=== PATIENT | female | born 1945 | race Caucasian/White ===

== ENCOUNTER 2017-06-19 07:31 | Outpatient (CLI) | payer MEDICARE, MEDICAID ==
[2017-06-19 08:18] LABS: HCT - HEMATOCRIT 39.7 % (37.0-47.0); HGB - HEMOGLOBIN 13.2 g/dL (12.0-16.0); MEAN CORPUSCULAR HEMOGLOBIN 28.4 pg (27.0-31.0); MEAN CORPUSCULAR HGB CONC 33.2 g/dL (32.0-36.0); MEAN CORPUSCULAR VOLUME 85.6 fL (81.0-99.0); MEAN PLATELET VOLUME 8.8 fL (7.9-10.8); RED BLOOD COUNT 4.64 10^6/uL (4.20-5.40); RED CELL DISTRIBUTION WIDTH 14.1 % (12.0-15.0); WHITE BLOOD COUNT 6.9 x10^3/uL (4.8-10.8)
[2017-06-19 08:39] LABS: ALBUMIN/GLOBULIN RATIO 1.2 (1.0-2.2); BILIRUBIN,TOTAL 0.6 mg/dL (0.2-1.0); BUN - BLOOD UREA NITROGEN 18 mg/dL (6-20); CARBON DIOXIDE - CO2 29 mmol/L (21-32); CHLORIDE 102 mmol/L (101-111); CHOL/HDL RATIO 5.4 (<4.4); CHOLESTEROL 223 mg/dL; CREATININE 0.9 mg/dL (0.4-1.0); GFR - MDRD 62 (>89); GLUCOSE 171 mg/dL (70-100); HDL CHOLESTEROL 41 mg/dL; LDL/HDL RATIO 3.9 (<4.4); SODIUM 141 mmol/L (135-145); TOTAL PROTEIN 6.7 g/dL (6.7-8.2); TRIGLYCERIDES 111 mg/dL; VLDL CHOLESTEROL 22 mg/dL
[2017-06-19 08:41] LABS: HEMOGLOBIN A1C 0.83 g/dL
--- NOTE | 2017-06-19 16:07 | XRAY Report ---
EXAMS: 1. Right Knee Radiography 2. Left Knee Radiography EXAM DATE:06/19/2017 08:51 AM. CLINICAL HISTORY:Bilateral knee pain. COMPARISON: None. TECHNIQUE: 3 views each. FINDINGS: Right Knee: Bones: Normal. No fractures or bone lesions. Joints: Moderate proximal tibiofibular arthropathy with osteophytes. Moderate patellofemoral joint sp ermelinda narrowing laterally with osteophytes. Also, small tibial spine and intercondylar osteophytes. Mil d chondral calcinosis. Soft Tissues: Normal. No soft tissue swelling. Left Knee: Bones: Normal. No fractures or bone lesions. Joints: Mild intercondylar, tibial spine and medial compartment osteophytes. Kvpb-kz-wzfugido patello femoral degenerative joint disease with lateral narrowing and osteophytes. Soft Tissues: Normal. No soft tissue swelling. IMPRESSION: 1. On the right knee, moderate patellofemoral degenerative joint disease and moderate proximal tibiof ibular degenerative changes. Tibiofemoral joint spaces relatively well-preserved. 2. On the left, moderate patellofemoral degenerative joint disease. Tibiofemoral joint space is relat ively well preserved although with small medial compartment osteophytes. [facility] Referring Provider Line: [phone] SITE ID: [id number]
== END 2017-06-19 07:32 | disposition home or self-care (01) ==
LOC: LAB 07:31
PROVIDERS: ATTEND Internal Medicine Nephrology
DX: M17.0 Bilateral primary osteoarthritis of knee (principal); N05.9 Unspecified nephritic syndrome with unspecified morphologic changes; D70.9 Neutropenia, unspecified; R80.9 Proteinuria, unspecified; E11.9 Type 2 diabetes mellitus without complications
CPT/HCPCS: 80053; 80061; 82043; 82570; 83036; 84156

== ENCOUNTER 2017-07-28 15:14 | Outpatient (CLI) | payer MEDICARE, MEDICAID | END 2017-07-28 15:15 | disposition home or self-care (01) | LOC: LAB.N 15:14 | PROVIDERS: ATTEND Internal Medicine Nephrology | DX: I10 Essential (primary) hypertension (principal) | CPT/HCPCS: 36415; 82088; 84244 ==

== ENCOUNTER 2017-09-07 15:18 | Outpatient (CLI) | payer MEDICARE, MEDICAID ==
[2017-09-07 13:17] LABS: CALCIUM 8.7 mg/dL (8.5-10.3); CREATININE 1.1 mg/dL (0.4-1.0)
== END 2017-09-07 15:19 | disposition home or self-care (01) ==
LOC: LAB.N 15:18
PROVIDERS: ATTEND Family Medicine
DX: E87.6 Hypokalemia (principal); I10 Essential (primary) hypertension; E11.9 Type 2 diabetes mellitus without complications
CPT/HCPCS: 36415; 80048

== ENCOUNTER 2017-09-10 08:40 | Outpatient (CLI) | payer MEDICARE, MEDICAID ==
[2017-09-10 13:22] LABS: CALCIUM 8.6 mg/dL (8.5-10.3); CREATININE 0.8 mg/dL (0.4-1.0); MAGNESIUM 1.5 mg/dL (1.7-2.8); PHOSPHORUS 3.4 mg/dL (2.5-4.6); POTASSIUM 3.1 mmol/L (3.5-5.0)
== END 2017-09-10 08:41 | disposition home or self-care (01) ==
LOC: LAB.N 08:40
PROVIDERS: ATTEND Physician Assistant Medical
DX: I10 Essential (primary) hypertension (principal)
CPT/HCPCS: 36415; 80069; 82088; 83735; 84244

== ENCOUNTER 2017-12-02 09:14 | Outpatient (CLI) | payer MEDICARE, MEDICAID ==
[2017-12-02 13:44] LABS: ALBUMIN 3.8 g/dL (3.2-5.5); ALBUMIN/GLOBULIN RATIO 1.3 (1.0-2.2); ALKALINE PHOSPHATASE 59 IU/L (42-121); ALT ALANINE AMINOTRANSFERASE 23 IU/L (10-60); AST ASPARTATE AMINOTRANSFERASE 21 IU/L (10-42); BILIRUBIN,TOTAL 0.4 mg/dL (0.2-1.0); BUN - BLOOD UREA NITROGEN 13 mg/dL (6-20); CALCIUM 8.7 mg/dL (8.5-10.3); CARBON DIOXIDE - CO2 28 mmol/L (21-32); CHLORIDE 103 mmol/L (101-111); CHOL/HDL RATIO 4.8 (<4.4); CHOLESTEROL 235 mg/dL; CREATININE 0.8 mg/dL (0.4-1.0); GFR - MDRD 71 (>89); GLUCOSE 145 mg/dL (70-100); HDL CHOLESTEROL 49 mg/dL; LDL CHOLESTEROL,CALCULATED 167 mg/dL; LDL/HDL RATIO 3.4 (<4.4); SODIUM 139 mmol/L (135-145); TOTAL PROTEIN 6.8 g/dL (6.7-8.2); VLDL CHOLESTEROL 19 mg/dL
[2017-12-02 14:21] LABS: HB2 TOTAL 13.5 g/dL; HEMOGLOBIN A1C 0.69 g/dL; HEMOGLOBIN A1C % 6.8 % (4.6-6.2)
== END 2017-12-02 09:15 | disposition home or self-care (01) ==
LOC: LAB.WCP 09:14
PROVIDERS: ATTEND Physician Assistant Medical
DX: E11.9 Type 2 diabetes mellitus without complications (principal); C73 Malignant neoplasm of thyroid gland
CPT/HCPCS: 36415; 80053; 80061; 83036; 83721; 84443

== ENCOUNTER 2017-12-15 09:17 | Outpatient (CLI) | payer MEDICARE, MEDICAID ==
[2017-12-15 12:38] LABS: RHEUMATOID FACTOR NEGATIVE (Negative)
[2017-12-15 13:10] LABS: BUN - BLOOD UREA NITROGEN 19 mg/dL (6-20); CALCIUM 9.2 mg/dL (8.5-10.3); CARBON DIOXIDE - CO2 28 mmol/L (21-32); CHLORIDE 101 mmol/L (101-111); CREATININE 0.8 mg/dL (0.4-1.0); GFR - MDRD 71 (>89); GLUCOSE 166 mg/dL (70-100); SODIUM 140 mmol/L (135-145)
[2017-12-15 13:14] LABS: CRP - C-REACTIVE PROTEIN < 1.0 mg/dL (0-1.0)
[2017-12-17 14:10] LABS: ANA SCREEN NEGATIVE (NEGATIVE)
== END 2017-12-15 09:18 | disposition home or self-care (01) ==
LOC: LAB.WCP 09:17
PROVIDERS: ATTEND Physician Assistant Medical
DX: E87.6 Hypokalemia (principal); M25.532 Pain in left wrist
CPT/HCPCS: 36415; 80048; 85651; 86038; 86140; 86430

== ENCOUNTER 2018-02-04 08:00 | Outpatient (CLI) | payer MEDICARE, MEDICAID ==
[2018-02-04 13:10] LABS: ALBUMIN 3.8 g/dL (3.2-5.5); ALBUMIN/GLOBULIN RATIO 1.3 (1.0-2.2); ALKALINE PHOSPHATASE 63 IU/L (42-121); ALT ALANINE AMINOTRANSFERASE 20 IU/L (10-60); AST ASPARTATE AMINOTRANSFERASE 18 IU/L (10-42); BILIRUBIN,TOTAL 0.2 mg/dL (0.2-1.0); BUN - BLOOD UREA NITROGEN 17 mg/dL (6-20); CALCIUM 8.6 mg/dL (8.5-10.3); CARBON DIOXIDE - CO2 30 mmol/L (21-32); CHLORIDE 101 mmol/L (101-111); CHOLESTEROL 187 mg/dL; CREATININE 0.9 mg/dL (0.4-1.0); GFR - MDRD 62 (>89); GLUCOSE 134 mg/dL (70-100); HDL CHOLESTEROL 47 mg/dL; LDL CHOLESTEROL,CALCULATED 117 mg/dL; LDL/HDL RATIO 2.5 (<4.4); SODIUM 138 mmol/L (135-145); TOTAL PROTEIN 6.8 g/dL (6.7-8.2); VLDL CHOLESTEROL 23 mg/dL
[2018-02-04 13:25] LABS: HB2 TOTAL 13.7 g/dL; HEMOGLOBIN A1C 0.68 g/dL; HEMOGLOBIN A1C % 6.7 % (4.6-6.2)
== END 2018-02-04 08:01 | disposition home or self-care (01) ==
LOC: LAB.WCP 08:00
PROVIDERS: ATTEND Physician Assistant Medical
DX: E11.9 Type 2 diabetes mellitus without complications (principal)
CPT/HCPCS: 36415; 80053; 80061; 83036; 83721

== ENCOUNTER 2018-03-09 09:30 | Outpatient (CLI) | payer MEDICARE, MEDICAID ==
[2018-03-09 13:09] LABS: HB2 TOTAL 14.1 g/dL; HEMOGLOBIN A1C 0.72 g/dL; HEMOGLOBIN A1C % 6.8 % (4.6-6.2)
[2018-03-09 13:21] LABS: ALBUMIN 3.9 g/dL (3.2-5.5); ALBUMIN/GLOBULIN RATIO 1.2 (1.0-2.2); ALKALINE PHOSPHATASE 64 IU/L (42-121); ALT ALANINE AMINOTRANSFERASE 20 IU/L (10-60); AST ASPARTATE AMINOTRANSFERASE 22 IU/L (10-42); BILIRUBIN,TOTAL 0.5 mg/dL (0.2-1.0); BUN - BLOOD UREA NITROGEN 15 mg/dL (6-20); CALCIUM 8.9 mg/dL (8.5-10.3); CARBON DIOXIDE - CO2 28 mmol/L (21-32); CHLORIDE 103 mmol/L (101-111); CHOLESTEROL 241 mg/dL; CREATININE 0.7 mg/dL (0.4-1.0); GFR - MDRD 83 (>89); GLUCOSE 131 mg/dL (70-100); HDL CHOLESTEROL 48 mg/dL; LDL CHOLESTEROL,CALCULATED 169 mg/dL; LDL/HDL RATIO 3.5 (<4.4); SODIUM 138 mmol/L (135-145); TOTAL PROTEIN 7.1 g/dL (6.7-8.2); VLDL CHOLESTEROL 24 mg/dL
== END 2018-03-09 09:31 | disposition home or self-care (01) ==
LOC: LAB.WCP 09:30
PROVIDERS: ATTEND Physician Assistant Medical
DX: E11.9 Type 2 diabetes mellitus without complications (principal)
CPT/HCPCS: 36415; 80053; 80061; 83036; 83721; 83735

== ENCOUNTER 2018-04-12 09:26 | Outpatient (CLI) | payer MEDICARE, MEDICAID ==
[2018-04-12 12:32] LABS: CALCIUM 8.6 mg/dL (8.5-10.3); CREATININE 0.9 mg/dL (0.4-1.0); MAGNESIUM 1.8 mg/dL (1.7-2.8)
== END 2018-04-12 09:27 | disposition home or self-care (01) ==
LOC: LAB.WCP 09:26
PROVIDERS: ATTEND Physician Assistant Medical
DX: E87.6 Hypokalemia (principal); E83.42 Hypomagnesemia
CPT/HCPCS: 36415; 80048; 83735

== ENCOUNTER 2018-06-06 08:00 | Outpatient (CLI) | payer MEDICARE, MEDICAID ==
[2018-06-06 19:57] LABS: ALBUMIN 3.5 g/dL (3.2-5.5); ALKALINE PHOSPHATASE 90 IU/L (42-121); ALT ALANINE AMINOTRANSFERASE 34 IU/L (10-60); AST ASPARTATE AMINOTRANSFERASE 19 IU/L (10-42); BILIRUBIN,TOTAL 0.6 mg/dL (0.2-1.0); BUN - BLOOD UREA NITROGEN 15 mg/dL (6-20); CALCIUM 9.7 mg/dL (8.5-10.3); CARBON DIOXIDE - CO2 24 mmol/L (21-32); CHLORIDE 103 mmol/L (101-111); CHOL/HDL RATIO 5.2 (<4.4); CHOLESTEROL 230 mg/dL; GFR - MDRD 55 (>89); GLUCOSE 153 mg/dL (70-100); HDL CHOLESTEROL 44 mg/dL; LDL CHOLESTEROL,CALCULATED 152 mg/dL; LDL/HDL RATIO 3.5 (<4.4); SODIUM 136 mmol/L (135-145); TOTAL PROTEIN 7.1 g/dL (6.7-8.2); VLDL CHOLESTEROL 34 mg/dL
[2018-06-06 20:38] LABS: HB2 TOTAL 14.3 g/dL; HEMOGLOBIN A1C 0.75 g/dL
== END 2018-06-06 08:01 | disposition home or self-care (01) ==
LOC: LAB.WCP 08:00
PROVIDERS: ATTEND Physician Assistant Medical
DX: E11.9 Type 2 diabetes mellitus without complications (principal)
CPT/HCPCS: 36415; 80053; 80061; 83036; 83721

== ENCOUNTER 2018-06-16 10:01 | Outpatient (CLI) | payer MEDICARE, MEDICAID ==
[2018-06-16 12:23] LABS: BASOPHILS # (AUTO) 0.1 10^3/uL (0.0-0.1); BASOPHILS % (AUTO) 0.9 %; EOSINOPHILS # (AUTO) 0.2 10^3/uL (0.0-0.7); EOSINOPHILS % (AUTO) 3.1 %; HGB - HEMOGLOBIN 12.8 g/dL (12.0-16.0); LYMPHOCYTES # (AUTO) 2.4 10^3/uL (1.5-3.5); LYMPHOCYTES % (AUTO) 37.2 %; MEAN CORPUSCULAR HEMOGLOBIN 27.5 pg (27.0-31.0); MEAN CORPUSCULAR HGB CONC 33.1 g/dL (32.0-36.0); MEAN PLATELET VOLUME 8.5 fL (7.9-10.8); MONOCYTES # (AUTO) 0.5 10^3/uL (0.0-1.0); MONOCYTES % (AUTO) 7.6 %; NEUTROPHILS # (AUTO) 3.3 10^3/uL (1.5-6.6); NEUTROPHILS % (AUTO) 51.2 %; PLT - PLATELET COUNT 417 10^3/uL (130-450); RED BLOOD COUNT 4.63 10^6/uL (4.20-5.40); RED CELL DISTRIBUTION WIDTH 15.5 % (12.0-15.0); WHITE BLOOD COUNT 6.4 x10^3/uL (4.8-10.8)
[2018-06-16 15:09] LABS: ALBUMIN 3.7 g/dL (3.2-5.5); ALBUMIN/GLOBULIN RATIO 1.1 (1.0-2.2); BILIRUBIN,TOTAL 0.6 mg/dL (0.2-1.0); CALCIUM 9.6 mg/dL (8.5-10.3); CREATININE 1.1 mg/dL (0.4-1.0); TOTAL PROTEIN 7.2 g/dL (6.7-8.2)
== END 2018-06-16 10:02 | disposition home or self-care (01) ==
LOC: LAB.WCP 10:01
PROVIDERS: ATTEND Physician Assistant Medical
DX: E27.9 Disorder of adrenal gland, unspecified (principal)
CPT/HCPCS: 36415; 80053; 85025

== ENCOUNTER 2018-07-05 09:05 | Outpatient (CLI) | payer MEDICARE, MEDICAID ==
--- NOTE | 2018-07-05 09:55 | CT Report ---
Reason: ABDOMINAL PAIN Procedure Date: 07/05/2018 Accession Number: [id number] / [id number] Procedure: CT - Abdomen/Pelvis W/O CPT Code: FULL RESULT: EXAM: CT ABDOMEN AND PELVIS EXAM DATE: 07/05/2018 09:27 AM. CLINICAL HISTORY: Generalized abdominal pain. COMPARISONS: None. TECHNIQUE: Routine helical CT imaging was performed through the abdomen and pelvis. IV contrast: No. Enteric contrast: No. Reconstructions: Coronal and sagittal. In accordance with CT protocol optimization, one or more of the following dose reduction techniques were utilized for this exam: automated exposure control, adjustment of mA and/or KV based on patient size, or use of iterative reconstructive technique. FINDINGS: Lung Bases: Unremarkable. Solid organs: Noncontrast imaging of the solid organs demonstrates a small 2 mm nonobstructing stone in the lower pole right kidney. A small 9 mm fat density nodule is also seen in the lower pole suggesting small angiomyolipoma (image 33, series 3). Some minor stranding is seen in the left upper quadrant surrounding the spleen, adrenal gland, distal pancreatic tail and upper pole left kidney which may be related to old inflammatory process. Tiny calcified granuloma is seen in the left hepatic lobe. Gallbladder/Bile Ducts: Unremarkable. Peritoneal Cavity/Bowel: Normal. No free fluid, free air or adenopathy. No masses or acute inflammatory process. The appendix is not visualized, however, no inflammatory changes are seen in the right lower quadrant region. Pelvic Organs: Normal. The bladder and visualized pelvic organs are within normal limits. Vasculature: No aneurysms or other significant abnormality. Bones: No significant abnormality. Other: None. IMPRESSION: 1. Right-sided nephrolithiasis without hydronephrosis. No bladder stones or wall thickening is identified. 2. 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 3. Minor stranding in the left upper quadrant and retroperitoneal region, nonspecific. Findings likely represent old inflammatory scarring. Correlate clinically. [facility]
== END 2018-07-05 09:06 | disposition home or self-care (01) ==
LOC: DI 09:05
PROVIDERS: ATTEND Family Medicine
DX: N20.0 Calculus of kidney (principal); D17.71 Benign lipomatous neoplasm of kidney; R10.9 Unspecified abdominal pain
CPT/HCPCS: 74176

== ENCOUNTER 2018-07-20 08:40 | Outpatient (CLI) | payer MEDICARE, MEDICAID ==
[2018-07-20 13:23] LABS: CALCIUM 9.5 mg/dL (8.5-10.3); CREATININE 1.5 mg/dL (0.4-1.0); MAGNESIUM 1.9 mg/dL (1.7-2.8)
[2018-07-22 17:51] LABS: CREATININE, URINE 0.78 g/24 h (0.50-2.15)
== END 2018-07-20 08:41 | disposition home or self-care (01) ==
LOC: LAB.WCP 08:40
PROVIDERS: ATTEND Physician Assistant Medical
DX: E87.6 Hypokalemia (principal); E83.42 Hypomagnesemia; E27.9 Disorder of adrenal gland, unspecified; C73 Malignant neoplasm of thyroid gland; E11.9 Type 2 diabetes mellitus without complications; R19.7 Diarrhea, unspecified
CPT/HCPCS: 36415; 80048; 82530; 82533; 82570; 83735; 84443

== ENCOUNTER 2018-07-21 07:58 | Outpatient (CLI) | payer MEDICARE, MEDICAID ==
--- NOTE | 2018-07-21 16:43 | Ultrasound Report ---
Reason: RENAL ANGIOMYOLIPOMA Procedure Date: 07/21/2018 Accession Number: [id number] / [id number] Procedure: US - Retroperitoneal CPT Code: FULL RESULT: EXAM: RENAL ULTRASOUND EXAM DATE: 07/21/2018 08:35 AM. CLINICAL HISTORY: RENAL ANGIOMYOLIPOMA. COMPARISON: ABDOMEN/PELVIS W/O 07/05/2018 9:27 AM. TECHNIQUE: Real-time scanning was performed with static images obtained. FINDINGS: Right Kidney: 9.5 cm. No hydronephrosis. Inferior pole nonobstructing 8 mm calculus. Left Kidney: 9.2 cm. Normal echotexture with no stones, contour-deforming masses, or hydronephrosis. Bladder: Bilateral jets seen. The prevoid bladder volume was 22 cc. The postvoid bladder volume was 8 cc. Other: None. IMPRESSION: The known right inferior pole angiomyolipoma is sonographically visible and measures up to 1.1 cm. Nonobstructing 8 mm inferior right renal calculus. Recommendation: While these lesions do grow, this is typically a slow process on the order of years. Given current size, follow-up by non-ionizing modality such as ultrasound with initial intervals spaced as far apart as 24 months is reasonable. The generic recommendation calls for imaging every 6-12 months, would suggest this interval once the lesion reaches 2 cm. Treatment in the form of IR embolization of angiomyolipoma is indicated in the following three scenarios: Size greater than 4 cm, clinically painful, bleeding into the mass. [facility]
== END 2018-07-21 07:59 | disposition home or self-care (01) ==
LOC: DI 07:58
PROVIDERS: ATTEND Family Medicine
DX: D17.71 Benign lipomatous neoplasm of kidney (principal); N20.2 Calculus of kidney with calculus of ureter
CPT/HCPCS: 76770

== ENCOUNTER 2018-09-12 08:00 | Outpatient (CLI) | payer MEDICARE, MEDICAID ==
[2018-09-12 17:10] LABS: ALBUMIN 3.7 g/dL (3.2-5.5); ALBUMIN/GLOBULIN RATIO 1.2 (1.0-2.2); ALKALINE PHOSPHATASE 62 IU/L (42-121); ALT ALANINE AMINOTRANSFERASE 13 IU/L (10-60); AST ASPARTATE AMINOTRANSFERASE 12 IU/L (10-42); BILIRUBIN,TOTAL 0.6 mg/dL (0.2-1.0); BUN - BLOOD UREA NITROGEN 13 mg/dL (6-20); CALCIUM 9.1 mg/dL (8.5-10.3); CARBON DIOXIDE - CO2 23 mmol/L (21-32); CHLORIDE 101 mmol/L (101-111); CHOL/HDL RATIO 5.5 (<4.4); CHOLESTEROL 238 mg/dL; CREATININE 1.4 mg/dL (0.4-1.0); GFR - MDRD 37 (>89); GLUCOSE 98 mg/dL (70-100); HDL CHOLESTEROL 43 mg/dL; LDL CHOLESTEROL,CALCULATED 170 mg/dL; SODIUM 131 mmol/L (135-145); TOTAL PROTEIN 6.9 g/dL (6.7-8.2); VLDL CHOLESTEROL 25 mg/dL
[2018-09-12 17:32] LABS: HB2 TOTAL 12.5 g/dL; HEMOGLOBIN A1C 0.55 g/dL; HEMOGLOBIN A1C % 6.2 % (4.6-6.2)
== END 2018-09-12 23:59 | disposition home or self-care (01) ==
LOC: LAB.WCP 08:00
PROVIDERS: ATTEND Physician Assistant Medical
DX: E11.9 Type 2 diabetes mellitus without complications (principal); E78.5 Hyperlipidemia, unspecified; C73 Malignant neoplasm of thyroid gland
CPT/HCPCS: 36415; 80053; 80061; 83036; 83721; 84443

== ENCOUNTER 2018-10-27 12:28 | Outpatient (CLI) | payer MEDICARE, MEDICAID | END 2018-10-27 12:29 | disposition EMS.NT | LOC: EMS 12:28 | PROVIDERS: ATTEND Surgery | DX: Z03.89 Encounter for observation for other suspected diseases and conditions ruled out (principal) ==

== ENCOUNTER 2018-10-29 08:59 | Emergency (ER) | payer MEDICARE, MEDICAID ==
[2018-10-29 09:14] VITALS: BP 132/85
[2018-10-29] MEDS ORDERED: HYDROcod/ACETAM 5/325 MG TABLET PO STA (09:18)
--- NOTE | 2018-10-29 09:21 | ED Physician Documentation ---
History of Present Illness - Stated complaint Stated Complaint: GLF/RIB PAIN - Chief complaint Chief Complaint: Back Pain - History obtained from History obtained from: Patient, Family - History of Present Illness Timing: How many days ago (2) Pain level max: 8 Pain level now: 8 - Additonal information Additional information: 73-year-old female presents to the emergency department with left rib pain for the past 2 days status post a ground-level fall in her kitchen. She did not strike her head. No neck or back pain. This morning she was carrying a large book and felt an increase in pain on the left ribs. Has been taking Tylenol and Motrin without relief. No difficulty breathing. Better with rest and worse with movement Review of Systems Constitutional: denies: Fever, Chills Nose: denies: Rhinorrhea / runny nose, Congestion GI: denies: Vomiting, Diarrhea Skin: denies: Rash Musculoskeletal: denies: Neck pain, Back pain Neurologic: denies: Headache PD PAST MEDICAL HISTORY - Past Medical History Past Medical History: Yes Cardiovascular: Hypertension - Present Medications Home Medications: Ambulatory Orders Medication Instructions Recorded Confirmed Aspirin Chewable [St Ted 81 mg PO ONCE 10/29/18 10/29/18 Aspirin] Hydrocodone/Acetaminophen 1 - 2 each PO Q6H PRN #20 tablet 10/29/18 [Hydrocodon-Acetaminophen 5-325] Levothyroxine [Synthroid] 10/29/18 10/29/18 Metoprolol Succinate [Toprol Xl] 50 mg PO BID 10/29/18 10/29/18 metFORMIN [Glucophage] 500 mg PO BIDWM 10/29/18 10/29/18 - Allergies Allergies/Adverse Reactions: Allergies Allergy/AdvReac Type Severity Reaction Status Date / Time eplerenone Allergy Respiratory Verified 10/29/18 09:17 spironolactone Allergy Respiratory Verified 10/29/18 09:18 amoxicillin [From Augmentin] AdvReac Nausea Verified 10/29/18 09:18 clavulanic acid AdvReac Nausea Verified 10/29/18 09:18 [From Augmentin] Sulfa (Sulfonamide AdvReac Nausea Verified 10/29/18 09:18 Antibiotics) - Social History Does the pt smoke?: No Does the pt have substance abuse?: No - Family History Family history: reports: Non contributory PD ED PE NORMAL - Vitals Vital signs reviewed: Yes - General General: Alert and oriented X 3, No acute distress, Well developed/nourished - HEENT HEENT: Atraumatic, PERRL, Moist mucous membranes - Neck Neck: Supple, no meningeal sign, No bony TTP - Cardiac Cardiac: RRR, Strong equal pulses - Respiratory Respiratory: No respiratory distress, Clear bilaterally, Other (TTP L lower ribs approx 8-10) - Abdomen Abdomen: Soft, Non tender, Non distended - Back Back: No spinal TTP - Derm Derm: Warm and dry - Neuro Neuro: Alert and oriented X 3 - Psych Psych: Normal mood, Normal affect Results - Vitals Vitals: Vital Signs - 24 hr 10/29/18 09:09 Temperature 35.8 C L Heart Rate 80 Respiratory 16 Rate Blood Pressure 132/85 H O2 Saturation 97 Oxygen O2 Source Room air - Rads (name of study) L rib xray Radiology: Prelim report reviewed, EMP read contemporaneously, See rad report (Acute minimally displaced left posterior lateral eighth rib fracture. No pleural effusion, pneumothorax, or other acute cardiopulmonary abnormality.) PD MEDICAL DECISION MAKING - ED course Complexity details: reviewed results, re-evaluated patient, considered differential, d/w patient, d/w family ED course: 73-year-old female with an acute minimally displaced left posterior lateral eighth rib fracture. Pain well controlled. Will prescribe pain medication for home. No pneumothorax or hemothorax. No effusion. Patient and family counseled regarding signs and symptoms for which I believe and urgent re- evaluation would be necessary. Patient with good understanding of and agreement to plan and is comfortable going home at this time This document was made in part using voice recognition software. While efforts are made to proofread this document, sound alike and grammatical errors may occur. Departure - Departure Disposition: 01 Home, Self Care Clinical Impression: Rib fracture Qualifiers: Encounter type: initial encounter Rib fracture type: single rib Fracture type: closed Laterality: left Qualified Code(s): S22.32XA - Fracture of one rib, left side, initial encounter for closed fracture Condition: Good Instructions: ED Fx Rib Follow-Up: Kailey Ennis PA-C [Primary Care Provider] - Within 1 week Prescriptions: Hydrocodone/Acetaminophen [Hydrocodon-Acetaminophen 5-325] 1 - 2 each PO Q6H PRN #20 tablet PRN Reason: pain Comments: You do have a fractured rib today. This will take several weeks to months to heal. Follow-up with your doctor for further care and medication refills. Do not drink alcohol or drive while on narcotic pain medicine. Note that many narcotic pain relievers also contain tylenol/acetaminophen. Please ensure that your total dose of acetaminophen from all sources does not exceed 3 grams (3000mg) per day. You may constipated on this medication, take a stool softener such as "Colace" twice a day while you are on it. Also recommend a [id number]-ylh-obfnizw laxative such as senna or MiraLAX any day that you do not have a bowel movement. If you received narcotic pain medication in the emergency department, do not drive or operate machinery for the next 24 hours. Discharge Date/Time: 10/29/18 10:15
--- NOTE | 2018-10-29 09:55 | XRAY Report ---
Reason: fall L rib pain x 2 days Procedure Date: 10/29/2018 Accession Number: [id number] / [id number] Procedure: XR - Ribs w/PA Chest LT CPT Code: FULL RESULT: EXAM: LEFT RIB RADIOGRAPHY EXAM DATE: 10/29/2018 09:41 AM. CLINICAL HISTORY: Fall L rib pain x 2 days. COMPARISON: None. TECHNIQUE: 1 view of the chest and 2 views of the left ribs. FINDINGS: Bones: There is an acute minimally displaced fracture of the left posterior lateral eighth rib. The remainder of visualized bones appear intact. Lungs: No focal opacities. No pneumothorax. No pleural effusions. Mediastinum: Heart and mediastinal contours are unremarkable. Other: None. IMPRESSION: 1. Acute minimally displaced left posterior lateral eighth rib fracture. 2. No pleural effusion, pneumothorax, or other acute cardiopulmonary abnormality. [facility]
== END 2018-10-29 10:15 | disposition home or self-care (01) ==
LOC: ED 08:59
DX: S22.32XA Fracture of one rib, left side, initial encounter for closed fracture (principal); W18.30XA Fall on same level, unspecified, initial encounter; I10 Essential (primary) hypertension
CPT/HCPCS: 71101; 99283; A9270

== ENCOUNTER 2018-12-13 09:57 | Outpatient (CLI) | payer MEDICARE, MEDICAID ==
[2018-12-13 13:12] LABS: HB2 TOTAL 12.3 g/dL; HEMOGLOBIN A1C 0.46 g/dL; HEMOGLOBIN A1C % 5.6 % (4.6-6.2)
[2018-12-13 13:19] LABS: ALBUMIN 3.6 g/dL (3.2-5.5); ALBUMIN/GLOBULIN RATIO 1.1 (1.0-2.2); ALKALINE PHOSPHATASE 67 IU/L (42-121); ALT ALANINE AMINOTRANSFERASE 16 IU/L (10-60); AST ASPARTATE AMINOTRANSFERASE 17 IU/L (10-42); BILIRUBIN,TOTAL 0.4 mg/dL (0.2-1.0); BUN - BLOOD UREA NITROGEN 26 mg/dL (6-20); CALCIUM 9.3 mg/dL (8.5-10.3); CARBON DIOXIDE - CO2 21 mmol/L (21-32); CHLORIDE 101 mmol/L (101-111); CHOL/HDL RATIO 4.6 (<4.4); CHOLESTEROL 220 mg/dL; CREATININE 1.2 mg/dL (0.4-1.0); GFR - MDRD 44 (>89); GLUCOSE 97 mg/dL (70-100); HDL CHOLESTEROL 48 mg/dL; LDL CHOLESTEROL,CALCULATED 147 mg/dL; LDL/HDL RATIO 3.1 (<4.4); SODIUM 129 mmol/L (135-145); TOTAL PROTEIN 6.8 g/dL (6.7-8.2); VLDL CHOLESTEROL 25 mg/dL
== END 2018-12-13 23:59 | disposition home or self-care (01) ==
LOC: LAB.WCP 09:57
PROVIDERS: ATTEND Physician Assistant Medical
DX: E11.9 Type 2 diabetes mellitus without complications (principal)
CPT/HCPCS: 36415; 80053; 80061; 83036; 83721

== ENCOUNTER 2018-12-15 10:25 | Outpatient (CLI) | payer MEDICARE, MEDICAID ==
--- NOTE | 2018-12-15 16:04 | XRAY Report ---
Reason: COUGH, CHRONIC Procedure Date: 12/15/2018 Accession Number: [id number] / [id number] Procedure: WCP - Chest 2 View X-Ray CPT Code: 86484 FULL RESULT: EXAM: CHEST RADIOGRAPHY EXAM DATE: 12/15/2018 10:51 AM. CLINICAL HISTORY: Cough, chronic. COMPARISON: RIBS W/PA CHEST LT 10/29/2018 9:22 AM. TECHNIQUE: 2 views. FINDINGS: Lungs/Pleura: No focal opacities evident. No pleural effusion. No pneumothorax. Normal volumes. Mediastinum: Heart and mediastinal contours are unremarkable. Other: Healing rib fractures are again seen. IMPRESSION: No evidence of pneumonia or airspace disease. [facility]
== END 2018-12-15 10:26 | disposition home or self-care (01) ==
LOC: DI.WCP 10:25
PROVIDERS: ATTEND Physician Assistant Medical
DX: R05 Cough (principal)
CPT/HCPCS: 71046

== ENCOUNTER 2019-02-15 11:13 | Outpatient (CLI) | payer MEDICARE, MEDICAID ==
[2019-02-15 19:44] LABS: BASOPHILS # (AUTO) 0.1 10^3/uL (0.0-0.1); BASOPHILS % (AUTO) 0.7 %; EOSINOPHILS # (AUTO) 0.3 10^3/uL (0.0-0.7); EOSINOPHILS % (AUTO) 3.4 %; HGB - HEMOGLOBIN 12.2 g/dL (12.0-16.0); LYMPHOCYTES # (AUTO) 2.3 10^3/uL (1.5-3.5); LYMPHOCYTES % (AUTO) 28.5 %; MEAN CORPUSCULAR HEMOGLOBIN 28.9 pg (27.0-31.0); MEAN CORPUSCULAR HGB CONC 32.6 g/dL (32.0-36.0); MEAN CORPUSCULAR VOLUME 88.7 fL (81.0-99.0); MEAN PLATELET VOLUME 8.5 fL (7.9-10.8); MONOCYTES # (AUTO) 0.6 10^3/uL (0.0-1.0); MONOCYTES % (AUTO) 7.4 %; NEUTROPHILS # (AUTO) 4.9 10^3/uL (1.5-6.6); PLT - PLATELET COUNT 319 10^3/uL (130-450); RED BLOOD COUNT 4.23 10^6/uL (4.20-5.40); RED CELL DISTRIBUTION WIDTH 14.2 % (12.0-15.0); WHITE BLOOD COUNT 8.2 x10^3/uL (4.8-10.8)
[2019-02-15 20:45] LABS: ALBUMIN/GLOBULIN RATIO 1.2 (1.0-2.2); BILIRUBIN,TOTAL 0.2 mg/dL (0.2-1.0); CALCIUM 9.2 mg/dL (8.5-10.3); CREATININE 1.8 mg/dL (0.4-1.0); TOTAL PROTEIN 7.3 g/dL (6.7-8.2)
== END 2019-02-15 11:14 | disposition home or self-care (01) ==
LOC: LAB.WCP 11:13
PROVIDERS: ATTEND Physician Assistant
DX: E27.9 Disorder of adrenal gland, unspecified (principal); E87.6 Hypokalemia
CPT/HCPCS: 36415; 80053; 83735; 85025

== ENCOUNTER 2019-02-15 21:34 | Emergency (ER) | payer MEDICARE, MEDICAID ==
--- NOTE | 2019-02-15 22:09 | ED Physician Documentation ---
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 For the last few days she is been feeling some odd symptoms, some numbness in the left hand and right leg and because of that started taking potassium supplementation. Saw her doctor today and labs were ordered showing a potassium 6.1 in the setting of a creatinine of 1.8. 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 : None HEENT: None Psych: None Musculoskeletal: None Derm: None - Past Surgical History Past Surgical History: No - Present Medications Home Medications: Ambulatory Orders Medication Instructions Recorded Confirmed Aspirin Chewable [St Ted 81 mg PO ONCE 10/29/18 10/29/18 Aspirin] Hydrocodone/Acetaminophen 1 - 2 each PO Q6H PRN #20 tablet 10/29/18 [Hydrocodon-Acetaminophen 5-325] Levothyroxine [Synthroid] 10/29/18 10/29/18 Metoprolol Succinate [Toprol Xl] 50 mg PO BID 10/29/18 10/29/18 metFORMIN [Glucophage] 500 mg PO BIDWM 10/29/18 10/29/18 - Allergies Allergies/Adverse Reactions: Allergies Allergy/AdvReac Type Severity Reaction Status Date / Time eplerenone Allergy Respiratory Verified 02/15/19 21:53 spironolactone Allergy Respiratory Verified 02/15/19 21:53 amoxicillin [From Augmentin] AdvReac Nausea Verified 02/15/19 21:53 clavulanic acid AdvReac Nausea Verified 02/15/19 21:53 [From Augmentin] Sulfa (Sulfonamide AdvReac Nausea Verified 02/15/19 21:53 Antibiotics) - Social History Does the pt smoke?: No Smoking Status: Never smoker Does the pt drink ETOH?: No Does the pt have substance abuse?: No - Immunizations Immunizations are current?: Yes - POLST Patient has POLST: No PD ED PE NORMAL - Vitals Vital signs reviewed: Yes - General General: Alert and oriented X 3, No acute distress - HEENT HEENT: PERRL, EOMI - Neck Neck: Supple, no meningeal sign, No bony TTP - Cardiac Cardiac: RRR, No murmur - Respiratory Respiratory: No respiratory distress, Clear bilaterally - Abdomen Abdomen: Normal bowel sounds, Non tender - Back Back: No CVA TTP, No spinal TTP - Derm Derm: No rash - Extremities Extremities: No edema, No calf tenderness / cord - Neuro Neuro: Alert and oriented X 3, Normal speech Results - Vitals Vitals: Vital Signs - 24 hr 02/15/19 21:45 Temperature 36.6 C Heart Rate 72 Respiratory 17 Rate Blood Pressure 133/71 H O2 Saturation 98 Oxygen O2 Source Room air - EKG (time done) 2151 Rate: Rate (enter#) (70) Rhythm: NSR, Other (No wide QRS or significantly peaked T waves to suggest severe hyperkalemia.) [place]: Normal Intervals: Normal ND QRS: Normal Ischemia: Normal ST segments Computer interpretation: Agree with computer - Labs Labs: Laboratory Tests 02/15/19 22:05 Sodium 129 L Potassium 5.3 H Chloride 96 L Carbon Dioxide 22 Anion Gap 11.0 BUN 32 H Creatinine 1.7 H Estimated GFR (MDRD) 30 L Glucose 113 H Calcium 9.2 PD MEDICAL DECISION MAKING - ED course ED course: 73-year-old woman with history of hypokalemia status post adrenalectomy presents now with hyperkalemia on outpatient labs to 6.1 earlier in the day of setting of taking a potassium supplement. Now is back down to 5.3. She is modestly prerenal and is administered IV fluids and advised to stop taking her potassium supplement. Departure - Departure Disposition: 01 Home, Self Care Clinical Impression: Hyperkalemia, Dehydration Condition: Good Record reviewed to determine appropriate education?: Yes Instructions: Hyperkalemia Dc, ED Dehydration, Diet Low Potassium Dc Comments: Stop taking a potassium supplement. Drink plenty of water. Eat a low potassium diet. Return if worse. Follow-up with your doctor for repeat labs after the weekend.
[2019-02-15 22:27] LABS: CALCIUM 9.2 mg/dL (8.5-10.3); CREATININE 1.7 mg/dL (0.4-1.0)
[2019-02-15] MEDS ORDERED: SODIUM CHLORIDE 0.9% 1,000 ML IV ONE (22:31)
[2019-02-15 22:56] VITALS: BP 134/70
== END 2019-02-15 23:43 | disposition home or self-care (01) ==
LOC: ED 21:34
DX: E87.5 Hyperkalemia (principal); E86.0 Dehydration; I10 Essential (primary) hypertension; E11.9 Type 2 diabetes mellitus without complications; E27.9 Disorder of adrenal gland, unspecified; E87.6 Hypokalemia
CPT/HCPCS: 36415; 80048; 80053; 83735; 85025; 93005; 96360; 99283

== ENCOUNTER 2019-02-20 08:00 | Outpatient (CLI) | payer MEDICARE, MEDICAID ==
[2019-02-20 19:32] LABS: CALCIUM 9.4 mg/dL (8.5-10.3); CREATININE 1.5 mg/dL (0.4-1.0)
== END 2019-02-20 23:59 | disposition home or self-care (01) ==
LOC: LAB.WCP 08:00
PROVIDERS: ATTEND Physician Assistant Medical
DX: E87.5 Hyperkalemia (principal)
CPT/HCPCS: 36415; 80048

== ENCOUNTER 2019-03-02 09:07 | Outpatient (CLI) | payer MEDICARE, MEDICAID ==
[2019-03-02 13:27] LABS: CALCIUM 8.9 mg/dL (8.5-10.3); CREATININE 1.6 mg/dL (0.4-1.0)
== END 2019-03-02 09:08 | disposition home or self-care (01) ==
LOC: LAB.WCP 09:07
PROVIDERS: ATTEND Physician Assistant Medical
DX: E87.6 Hypokalemia (principal)
CPT/HCPCS: 36415; 80048

== ENCOUNTER 2019-03-08 08:43 | Emergency (ER) | payer MEDICARE, MEDICAID ==
[2019-03-08 09:07] LABS: BASOPHILS # (AUTO) 0.1 10^3/uL (0.0-0.1); BASOPHILS % (AUTO) 0.6 %; EOSINOPHILS # (AUTO) 0.2 10^3/uL (0.0-0.7); EOSINOPHILS % (AUTO) 1.6 %; HGB - HEMOGLOBIN 12.1 g/dL (12.0-16.0); LYMPHOCYTES # (AUTO) 2.6 10^3/uL (1.5-3.5); MEAN CORPUSCULAR HEMOGLOBIN 28.5 pg (27.0-31.0); MEAN CORPUSCULAR HGB CONC 33.2 g/dL (32.0-36.0); MEAN CORPUSCULAR VOLUME 85.8 fL (81.0-99.0); MEAN PLATELET VOLUME 7.2 fL (7.9-10.8); MONOCYTES # (AUTO) 0.9 10^3/uL (0.0-1.0); MONOCYTES % (AUTO) 9.8 %; NEUTROPHILS # (AUTO) 5.5 10^3/uL (1.5-6.6); PLT - PLATELET COUNT 400 10^3/uL (130-450); RED BLOOD COUNT 4.24 10^6/uL (4.20-5.40); RED CELL DISTRIBUTION WIDTH 13.7 % (12.0-15.0); WHITE BLOOD COUNT 9.2 x10^3/uL (4.8-10.8)
--- NOTE | 2019-03-08 09:20 | ED Physician Documentation ---
PD HPI NVD - Stated complaint Stated Complaint: N/V - Chief complaint Chief Complaint: Abd Pain - History obtained from History obtained from: Patient - History of Present Illness Timing - onset: How many days ago (few) Timing - duration: Days (few) Timing - details: Gradual onset (she had had cough and congestion and seen by PMD, with Rx for Zpack. Patient started with nausea and then vomiting after taking the med and worse the next day after 2nd dose. Continued with N/V periodically through the day. She did not take the 5th dose this morning, but is still feeling nauseated with vomiting overnight and this morning.), Still present Associated symptoms: Loss of appetite, Other (has had some pain right side of neck with vomiting). No: Abdominal pain, Chest pain, Hematemesis, Near syncope / syncope Contributing factors: Recent antibiotics. No: Sick contact, Bad food Improved by: No: Vomiting Worsened by: Eating Similar symptoms before: Has not had sx before Recently seen: Clinic (see above) Review of Systems Constitutional: denies: Fever, Myalgias Nose: denies: Rhinorrhea / runny nose, Congestion Throat: denies: Sore throat Cardiac: denies: Chest pain / pressure Respiratory: reports: Dyspnea, Cough (improved over the past 4 days) GI: reports: Nausea, Vomiting. denies: Abdominal Pain, Abdominal Swelling, Diarrhea : denies: Dysuria, Frequency Musculoskeletal: reports: Neck pain (right side of neck, onset after vomiting and occurs during vomiting.) Neurologic: reports: Generalized weakness. 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 : None HEENT: None Psych: None Musculoskeletal: None Derm: None - Past Surgical History Past Surgical History: No - Present Medications Home Medications: Ambulatory Orders Medication Instructions Recorded Confirmed Aspirin Chewable [St Ted 81 mg PO ONCE 10/29/18 03/08/19 Aspirin] Levothyroxine [Synthroid] 100 mcg PO DAILY 10/29/18 03/08/19 Metoprolol Succinate [Toprol Xl] 50 mg PO BID 10/29/18 03/08/19 metFORMIN [Glucophage] 500 mg PO BIDWM 10/29/18 03/08/19 Cephalexin [Keflex] 500 mg PO TID #20 capsule 03/08/19 Omeprazole 20 mg PO DAILY 03/08/19 03/08/19 Promethazine [Phenergan] 25 mg PO Q6H PRN #15 tab 03/08/19 - Allergies Allergies/Adverse Reactions: Allergies Allergy/AdvReac Type Severity Reaction Status Date / Time eplerenone Allergy Respiratory Verified 03/08/19 09:49 spironolactone Allergy Respiratory Verified 03/08/19 09:49 amoxicillin [From Augmentin] AdvReac Nausea Verified 03/08/19 09:49 clavulanic acid AdvReac Nausea Verified 03/08/19 09:49 [From Augmentin] ondansetron [From Zofran] AdvReac Unknown Verified 03/08/19 09:29 Sulfa (Sulfonamide AdvReac Nausea Verified 03/08/19 08:50 Antibiotics) - Social History Does the pt smoke?: No Smoking Status: Never smoker Does the pt drink ETOH?: No Does the pt have substance abuse?: No - Immunizations Immunizations are current?: Yes - POLST Patient has POLST: No PD ED PE NORMAL - Vitals Vital signs reviewed: Yes - General General: Alert and oriented X 3, No acute distress, Well developed/nourished - Neck Neck: Supple, no meningeal sign, No adenopathy - Cardiac Cardiac: RRR, No murmur - Respiratory Respiratory: Clear bilaterally - Abdomen Abdomen: Normal bowel sounds, Soft, Non tender, Non distended, No organomegaly - Back Back: Other (some right flank tender noted) - Derm Derm: Normal color, Warm and dry - Extremities Extremities: No deformity, No tenderness to palpate, Normal ROM s pain, No edema, No calf tenderness / cord - Neuro Neuro: Alert and oriented X 3, No motor deficit, Normal speech Results - Vitals Vitals: Vital Signs - 24 hr 03/08/19 03/08/19 08:49 09:42 Temperature 36.6 C Heart Rate 92 63 Respiratory 18 15 Rate Blood Pressure 134/76 H 126/75 O2 Saturation 98 97 Oxygen O2 Source Room air - Labs Labs: Laboratory Tests 03/08/19 03/08/19 03/08/19 09:04 09:04 09:04 WBC 9.2 RBC 4.24 Hgb 12.1 Hct 36.4 L MCV 85.8 MCH 28.5 MCHC 33.2 RDW 13.7 Plt Count 400 MPV 7.2 L Neut # (Auto) 5.5 Lymph # (Auto) 2.6 [place] # (Auto) 0.9 Eos # (Auto) 0.2 Baso # (Auto) 0.1 Absolute Nucleated RBC 0.00 Nucleated RBC % 0.0 Sodium 128 L Potassium 4.8 Chloride 92 L Carbon Dioxide 24 Anion Gap 12.0 BUN 25 H Creatinine 1.5 H Estimated GFR (MDRD) 34 L Glucose 124 H Calcium 9.4 Magnesium 1.8 Total Bilirubin 0.6 AST 18 ALT 18 Alkaline Phosphatase 69 Total Protein 6.9 Albumin 4.2 Globulin 2.7 Albumin/Globulin Ratio 1.6 Lipase 36 TSH Cortisol Urine Color Urine Clarity Urine pH Ur Specific [place] Urine Protein Urine Glucose (UA) Urine Ketones Urine Occult Blood Urine Nitrite Urine Bilirubin Urine Urobilinogen Ur Leukocyte Esterase Urine RBC Urine WBC Ur Squamous Epith Cells Urine Bacteria Ur Microscopic Review Urine Culture Comments 03/08/19 03/08/19 03/08/19 09:04 09:04 09:14 WBC RBC Hgb Hct MCV MCH MCHC RDW Plt Count MPV Neut # (Auto) Lymph # (Auto) [place] # (Auto) Eos # (Auto) Baso # (Auto) Absolute Nucleated RBC Nucleated RBC % Sodium Potassium Chloride Carbon Dioxide Anion Gap BUN Creatinine Estimated GFR (MDRD) Glucose Calcium Magnesium Total Bilirubin AST ALT Alkaline Phosphatase Total Protein Albumin Globulin Albumin/Globulin Ratio Lipase TSH 1.74 Cortisol 12.1 Urine Color YELLOW Urine Clarity SL. CLOUDY Urine pH 6.0 Ur Specific [place] <=1.005 Urine Protein NEGATIVE Urine Glucose (UA) NEGATIVE Urine Ketones NEGATIVE Urine Occult Blood TRACE-INTA Urine Nitrite NEGATIVE Urine Bilirubin NEGATIVE Urine Urobilinogen 0.2 (NORMAL) Ur Leukocyte Esterase MODERATE H Urine RBC 0-5 Urine WBC >25 H Ur Squamous Epith Cells FEW Squamous Urine Bacteria Moderate H Ur Microscopic Review INDICATED Urine Culture Comments INDICATED PD MEDICAL DECISION MAKING - ED course Complexity details: reviewed results, re-evaluated patient (improved symptoms with fluids and meds and patient is anxious to go home. ), considered differential (symptoms onset with taking the Zithromax. presume gastritis related to that. Cough has improved though. Has UTI as well, so N/V could relate to that as well. ), d/w patient Departure - Departure Disposition: 01 Home, Self Care Clinical Impression: Side effect of medication Nausea and vomiting Qualifiers: Vomiting type: unspecified Vomiting Intractability: non-intractable Qualified Code(s): R11.2 - Nausea with vomiting, unspecified UTI (urinary tract infection) Qualifiers: Urinary tract infection type: acute cystitis Hematuria presence: without hematuria Qualified Code(s): N30.00 - Acute cystitis without hematuria Condition: Stable Record reviewed to determine appropriate education?: Yes Instructions: ED Nausea Vomiting Follow-Up: Kailey Ennis PA-C [Primary Care Provider] - Prescriptions: Cephalexin [Keflex] 500 mg PO TID #20 capsule Promethazine [Phenergan] 25 mg PO Q6H PRN #15 tab PRN Reason: Nausea / Vomiting Comments: Small frequent fluids and bland food today. Promethazine if needed for nausea. I presume your nausea is a side effect of the Zithromax you had been on. That should improve over the next day or 2. Alternatively he may have some nausea and vomiting from the bladder infection. Will have you take cephalexin 3 times a day for 5 days for that. The Zithromax antibiotic would not have covered a bladder infection well so a different antibiotic would be appropriate. Recheck if not improving the next day or 2. Discharge Date/Time: 03/08/19 11:49
[2019-03-08 09:21] LABS: ALBUMIN 4.2 g/dL (3.2-5.5); ALBUMIN/GLOBULIN RATIO 1.6 (1.0-2.2); BILIRUBIN,TOTAL 0.6 mg/dL (0.2-1.0); CALCIUM 9.4 mg/dL (8.5-10.3); CREATININE 1.5 mg/dL (0.4-1.0); TOTAL PROTEIN 6.9 g/dL (6.7-8.2)
[2019-03-08 09:23] LABS: BILIRUBIN,URINE NEGATIVE (NEGATIVE); GLUCOSE, URINE (UA) NEGATIVE (NEGATIVE); KETONES,URINE (UA) NEGATIVE (NEGATIVE); LEUKOCYTE ESTERASE, URINE MODERATE (NEGATIVE); NITRITE,URINE NEGATIVE (NEGATIVE); OCCULT BLOOD,URINE TRACE-INTA (NEGATIVE); PROTEIN,URINE NEGATIVE (NEGATIVE); UROBILINOGEN,URINE 0.2 (NORMAL) E.U./dL (NORMAL)
[2019-03-08 09:27] LABS: CLARITY,URINE SL. CLOUDY (CLEAR)
[2019-03-08 09:39] LABS: RBC,URINE 0-5 /HPF (0-5)
[2019-03-08 09:40] LABS: BACTERIA,URINE Moderate /HPF (None Seen); SQUAMOUS EPITHELIAL CELL,UR FEW Squamous (<= Few)
[2019-03-08 09:43] VITALS: BP 126/75
[2019-03-08] MEDS ORDERED: PROMETHAZINE INJ 12.5 MG in SODIUM CHLORIDE 0.9% 50 ML IV STA (09:47)
[2019-03-08] MEDS ORDERED: SODIUM CHLORIDE 0.9% 1,000 ML IV ONE (09:47)
[2019-03-08] MEDS ORDERED: FAMOTIDINE 20 MG/2 ML VIAL IVP STA (09:48)
[2019-03-08] MEDS ORDERED: DEXAMETHASONE 10 MG/ML VIAL IVP STA (09:49)
--- NOTE | 2019-03-08 10:23 | XRAY Report ---
Reason: cough and right upper chest pain Procedure Date: 03/08/2019 Accession Number: [id number] / [id number] Procedure: XR - Chest 1 View X-Ray CPT Code: 67993 FULL RESULT: EXAM: CHEST RADIOGRAPHY EXAM DATE: 03/08/2019 09:59 AM. CLINICAL HISTORY: Cough and right upper chest pain. COMPARISON: CHEST 2 VIEW 12/15/2018 10:23 AM. TECHNIQUE: 1 view. FINDINGS: Lungs/Pleura: No focal opacities evident. No pleural effusion. No pneumothorax. Mediastinum: Within exam limitations, the cardiomediastinal contour is normal. Other: Stable degenerative changes in the spine and shoulders. IMPRESSION: 1. No radiographic evidence of acute cardiopulmonary disease. 2. Other stable chronic degenerative changes. RADIA
[2019-03-08] MEDS ORDERED: cephALEXin 250 MG CAPSULE PO STA (11:23)
== END 2019-03-08 11:49 | disposition home or self-care (01) ==
LOC: ED 08:43
DX: T36.3X5A Adverse effect of macrolides, initial encounter (principal); R11.2 Nausea with vomiting, unspecified; N30.00 Acute cystitis without hematuria; I10 Essential (primary) hypertension; E11.9 Type 2 diabetes mellitus without complications; Z79.84 Long term (current) use of oral hypoglycemic drugs
CPT/HCPCS: 36415; 71045; 81001; 82533; 83690; 83735; 87077; 87086; 87181; 96374; 96375; 99283; A9270; J7040; 80053; 81003; 84443; 85025

== ENCOUNTER 2019-03-13 10:19 | Outpatient (CLI) | payer MEDICARE, MEDICAID ==
[2019-03-13 12:44] LABS: BUN - BLOOD UREA NITROGEN 27 mg/dL (6-20); CALCIUM 9.3 mg/dL (8.5-10.3); CARBON DIOXIDE - CO2 25 mmol/L (21-32); CHLORIDE 101 mmol/L (101-111); CHOL/HDL RATIO 4.9 (<4.4); CHOLESTEROL 247 mg/dL; CREATININE 1.3 mg/dL (0.4-1.0); GFR - MDRD 40 (>89); GLUCOSE 110 mg/dL (70-100); HDL CHOLESTEROL 50 mg/dL; LDL CHOLESTEROL,CALCULATED 170 mg/dL; LDL/HDL RATIO 3.4 (<4.4); SODIUM 132 mmol/L (135-145); VLDL CHOLESTEROL 27 mg/dL
[2019-03-13 13:43] LABS: HB2 TOTAL 12.1 g/dL; HEMOGLOBIN A1C 0.56 g/dL; HEMOGLOBIN A1C % 6.4 % (4.6-6.2)
== END 2019-03-13 23:59 | disposition home or self-care (01) ==
LOC: LAB.WCP 10:19
PROVIDERS: ATTEND Physician Assistant Medical
DX: E11.9 Type 2 diabetes mellitus without complications (principal)
CPT/HCPCS: 36415; 80048; 80061; 83036; 83721

== ENCOUNTER 2019-03-22 10:45 | Outpatient (CLI) | payer MEDICARE, MEDICAID | END 2019-03-22 10:46 | disposition home or self-care (01) | LOC: DI 10:45 | PROVIDERS: ATTEND Physician Assistant Medical | DX: Z53.9 Procedure and treatment not carried out, unspecified reason (principal) ==

== ENCOUNTER 2019-04-07 09:36 | Outpatient (CLI) | payer MEDICARE, MEDICAID ==
[2019-04-07 13:58] LABS: BASOPHILS % (AUTO) 0.8 %; EOSINOPHILS # (AUTO) 0.1 10^3/uL (0.0-0.7); EOSINOPHILS % (AUTO) 2.2 %; HGB - HEMOGLOBIN 11.7 g/dL (12.0-16.0); LYMPHOCYTES # (AUTO) 2.1 10^3/uL (1.5-3.5); LYMPHOCYTES % (AUTO) 37.8 %; MEAN CORPUSCULAR HGB CONC 32.9 g/dL (32.0-36.0); MEAN CORPUSCULAR VOLUME 88.3 fL (81.0-99.0); MEAN PLATELET VOLUME 8.7 fL (7.9-10.8); MONOCYTES # (AUTO) 0.5 10^3/uL (0.0-1.0); MONOCYTES % (AUTO) 8.7 %; NEUTROPHILS # (AUTO) 2.9 10^3/uL (1.5-6.6); NEUTROPHILS % (AUTO) 50.5 %; PLT - PLATELET COUNT 340 10^3/uL (130-450); RED BLOOD COUNT 4.04 10^6/uL (4.20-5.40); RED CELL DISTRIBUTION WIDTH 14.1 % (12.0-15.0); WHITE BLOOD COUNT 5.6 x10^3/uL (4.8-10.8)
[2019-04-07 14:29] LABS: ALBUMIN/GLOBULIN RATIO 1.4 (1.0-2.2); BILIRUBIN,TOTAL 0.5 mg/dL (0.2-1.0); CALCIUM 9.3 mg/dL (8.5-10.3); CREATININE 1.5 mg/dL (0.4-1.0); TOTAL PROTEIN 6.9 g/dL (6.7-8.2)
== END 2019-04-07 23:59 | disposition home or self-care (01) ==
LOC: LAB.WCP 09:36
PROVIDERS: ATTEND Physician Assistant Medical
DX: E87.5 Hyperkalemia (principal)
CPT/HCPCS: 36415; 80053; 85025

== ENCOUNTER 2019-04-14 16:54 | Outpatient (CLI) | payer MEDICARE, MEDICAID | END 2019-04-14 23:59 | disposition home or self-care (01) | LOC: LAB.R 16:54 | PROVIDERS: ATTEND Family Medicine | DX: N39.0 Urinary tract infection, site not specified (principal) | CPT/HCPCS: 87086 ==

== ENCOUNTER 2019-04-18 08:00 | Outpatient (CLI) | payer MEDICARE, MEDICAID | END 2019-04-18 23:59 | disposition home or self-care (01) | LOC: LAB.WCP 08:00 | PROVIDERS: ATTEND Family Medicine | DX: R53.82 Chronic fatigue, unspecified (principal); E27.9 Disorder of adrenal gland, unspecified; E89.6 Postprocedural adrenocortical (-medullary) hypofunction; D64.9 Anemia, unspecified; E55.9 Vitamin D deficiency, unspecified | CPT/HCPCS: 36415; 82306; 82728 ==

== ENCOUNTER 2019-04-28 08:00 | Outpatient (CLI) | payer MEDICARE, MEDICAID | END 2019-04-28 23:59 | disposition home or self-care (01) | LOC: LAB 08:00 | PROVIDERS: ATTEND Internal Medicine Nephrology | DX: E87.5 Hyperkalemia (principal) | CPT/HCPCS: 84132 ==

== ENCOUNTER 2019-05-03 08:56 | Outpatient (CLI) | payer MEDICARE, MEDICAID ==
[2019-05-03] MEDS ORDERED: REGADENOSON 0.4 MG/5 ML SYRINGE IVP ONE (11:12)
--- NOTE | 2019-05-03 13:28 | CARDIAC PROCEDURE NOTE ---
DATE OF SERVICE: 05/03/2019 Physician: Manda Jarvis MD, [facility] INDICATION: Dyspnea on exertion. CARDIAC RISK FACTORS: Advanced age, postmenopausal status, family history of heart disease, elevated cholesterol, diabetes, hypertension. DESCRIPTION OF PROCEDURE: After signing informed consent, the patient underwent a modified Daniel-protocol treadmill stress test with nuclear myocardial perfusion imaging. Resting heart rate: 75. Peak heart rate: 130 (87% predicted maximum heart rate for age). Resting blood pressure: 160/90. Peak blood pressure: 210/70. Resting oxygen saturation 99% on room air. Saturation throughout stress testing was 97% to 98% on room air. The patient exercised for 6 minutes and 21 seconds on a modified Daniel-protocol stress test. She developed no chest pain, had mild shortness of breath, and the exercise was stopped due to fatigue of her left leg (the side impaired by her stroke). RESTING ELECTROCARDIOGRAM: Normal sinus rhythm, early repolarization. ELECTROCARDIOGRAM AT PEAK: No new ST segment depressions or T-wave inversions. SUMMARY 1. Fair exercise tolerance. 2. No ischemic changes by EKG criteria on this treadmill stress test. 3. Nuclear myocardial perfusion imaging reported separately. cc: Kailey Ennis PA-C TD: 05/03/2019 12:42 MTDD
--- NOTE | 2019-05-03 17:45 | Nuclear Medicine Report ---
Reason: DYSPNEA ON EXERTION Procedure Date: 05/03/2019 Accession Number: [id number] / [id number] Procedure: NM - Myocardial Perfusion STR/RST CPT Code: FULL RESULT: EXAM: SINGLE-ISOTOPE EXERCISE STRESS TEST. SINGLE-ISOTOPE AND ONE-DAY REST/STRESS MYOCARDIAL PERFUSION SCANS WITH TOMOGRAPHIC IMAGING, QUANTITATIVE ANALYSIS, WALL MOTION ANALYSIS AND CALCULATION OF EJECTION FRACTION. EXAM DATE: 05/03/2019 01:49 PM. CLINICAL HISTORY: DYSPNEA ON EXERTION. COMPARISON: MYOCARDIAL PERFUSION 05/03/2019 9:59 AM. TECHNIQUE: A rest myocardial perfusion scan was done with tomography after the intravenous administration of 10.6 mCi Tc-99m sestamibi. After an appropriate delay, a treadmill exercise stress was performed according to department protocol. The patient exercised for 6 minutes and 21 seconds. The maximum heart rate was 130 bpm, which was 87% of the maximum predicted heart rate of 149 bpm. At approximately peak heart rate, 43.1 mCi of Tc-99m sestamibi was injected for stress myocardial perfusion scan. Motion correction was applied when appropriate. Gated tomographic images were obtained for wall motion analysis and computation of left ventricular ejection fraction. FINDINGS: Perfusion images: Left ventricular chamber size appears normal at rest and unchanged at stress. No convincing fixed perfusion deficits. Moderate size, mild to moderate severity fixed basal lateral and inferior wall perfusion deficit probably attenuation artifact. No convincing reversible perfusion deficits. SSS 4, SRS 2, SDS 2. Gated images: No convincing focal wall motion abnormality. Calculated left ventricular EDV 51 mL, ESV 4 mL. The left ventricular ejection fraction is estimated at 92% (normal > 50%). IMPRESSION: 1. No convincing reversible perfusion deficits to indicate stress-induced ischemia. 2. No convincing fixed perfusion deficits. 3. Left ventricular ejection fraction of 92% (normal > 50%). Please correlate findings with stress ECG tracings and procedure notes. RADIA
== END 2019-05-03 08:57 | disposition home or self-care (01) ==
LOC: DI 08:56
PROVIDERS: ATTEND Physician Assistant Medical
DX: R06.09 Other forms of dyspnea (principal)
CPT/HCPCS: 78452; 93016; 93017; 93018; A9500

== ENCOUNTER 2019-06-19 11:18 | Outpatient (CLI) | payer MEDICARE, MEDICAID ==
--- NOTE | 2019-06-20 11:05 | XRAY Report ---
Reason: LEFT FOOT PAIN Procedure Date: 06/19/2019 Accession Number: [id number] / [id number] Procedure: WCP - Foot 3 View LT CPT Code: FULL RESULT: EXAM: LEFT FOOT RADIOGRAPHY EXAM DATE: 06/19/2019 11:18 AM. CLINICAL HISTORY: Left foot pain. COMPARISON: None. TECHNIQUE: 3 views. FINDINGS: Bones: . No fractures or bone lesions. 5 mm of spurring at the plantar calcaneus. Partial calcification of the Achilles tendon insertion site at the dorsum of the calcaneus. Scattered calcifications along the plantar fascia. Joints: Normal. No subluxations. Soft Tissues: Normal. No soft tissue swelling. IMPRESSION: Plantar calcaneal spurring and tenderness calcification at the heel. Scattered calcification at the plantar fascia. RADIA
== END 2019-06-19 23:59 | disposition home or self-care (01) ==
LOC: DI.WCP 11:18 → EDSTATUS 13:19 → DI.WCP 23:59
PROVIDERS: ATTEND Family Medicine
DX: M77.32 Calcaneal spur, left foot (principal); M65.872 Other synovitis and tenosynovitis, left ankle and foot

== ENCOUNTER 2019-08-09 08:00 | Outpatient (CLI) | payer MEDICARE, MEDICAID | END 2019-08-09 23:59 | disposition home or self-care (01) | LOC: LAB.R 08:00 | PROVIDERS: ATTEND Physician Assistant Medical | DX: R29.6 Repeated falls (principal) | CPT/HCPCS: 81002; 87086 ==

== ENCOUNTER 2019-08-30 09:10 | Outpatient (CLI) | payer MEDICARE, MEDICAID ==
[2019-08-30] MEDS ORDERED: GADOBUTROL 10 MMOL/10 ML VIAL ONE (10:35)
[2019-08-30] MEDS ORDERED: GADOBUTROL 10 MMOL/10 ML VIAL IVP ONE (10:53)
--- NOTE | 2019-08-30 14:06 | MRI Report ---
Reason: CONFUSION Procedure Date: 08/30/2019 Accession Number: [id number] / [id number] Procedure: MRI - Brain W/WO CPT Code: Addended Final Report FULL RESULT: EXAM: MRI BRAIN WITHOUT AND WITH CONTRAST EXAM DATE: 08/30/2019 10:50 AM. CLINICAL HISTORY: 73-year-old female. CONFUSION. COMPARISON: None TECHNIQUE: Multiplanar, multisequence T1-weighted and fluid-sensitive MR sequences of the brain were performed before and after administration of intravenous contrast. Sequences optimized for routine evaluation. Other: None. IV Contrast: 9 ML Gadavist. FINDINGS: Brain Volume: Mild diffuse cerebral volume loss with ex-vacuo dilatation of the ventricles and sulci. Parenchyma: No acute hemorrhage, mass, or infarct. Moderate scattered T2/FLAIR hyperintense periventricular, deep, and subcortical white matter lesions within cerebral hemispheres bilaterally. Chronic lacunar infarcts right jarvis radiata, and basal ganglia bilaterally. Scattered foci of susceptibility artifact left thalamus, right temporal lobe, left temporal lobe. No abnormal enhancement. Ventricles/Cisterns: No hydrocephalus. No abnormal extra-axial fluid collection or hemorrhage. Orbits: Symmetric and unremarkable. Sella Turcica: Enlarged, empty sella appearance, may represent empty sella syndrome. IAC: Symmetric and unremarkable. Vasculature: Normal signal flow void is seen in the major arterial structures at the skull base. The dural sinuses are patent and enhance normally. Sinuses: Mucus retention cyst/polyp left maxillary sinus. The remaining paranasal sinuses are clear. Bones: No focal pathologic appearing marrow signal changes. Other: None. IMPRESSION: 1. No MRI evidence of acute intracranial abnormality. Specifically, no evidence of acute or subacute infarct, acute intracranial hemorrhage, mass, midline shift, or hydrocephalus. No abnormal intracranial enhancement. 2. Mild diffuse cerebral volume loss with ex-vacuo dilatation of the ventricles and sulci. 3. Moderate scattered T2/FLAIR hyperintense periventricular, deep, and subcortical white matter lesions within cerebral hemispheres bilaterally. While nonspecific, favored to represent sequela of chronic microangiopathy. 4. Chronic lacunar infarcts right jarvis radiata, and basal ganglia bilaterally. 5. Scattered foci of susceptibility artifact left thalamus, right temporal lobe, left temporal lobe. These likely represent chronic microhemorrhages, etiology is nonspecific, possibly hypertensive. 6. Enlarged, empty sella appearance, may represent empty sella syndrome. RADIA ADDENDUM: 09/02/19 11:32 Since the initial dictation, a comparison study has been received, now there is a prior CT head from 04/02/2018. The chronic lacunar infarcts in the right corner radiata and basal ganglia bilaterally discussed in this report were also present on that prior study from 04/02/2018. Comparison of extent of white matter disease is difficult across modalities, however see FLAIR hyperintense lesions on this MRI roughly correspond to hypodensities on the prior CT, therefore the overall white matter disease burden appears similar. The patient also had the enlarged, empty sella appearance on the prior CT. The ventricular size is stable between the 2 studies.
== END 2019-08-30 09:11 | disposition home or self-care (01) ==
LOC: DI 09:10
PROVIDERS: ATTEND Physician Assistant Medical
DX: R41.0 Disorientation, unspecified (principal)
CPT/HCPCS: 70553; A9585

== ENCOUNTER 2019-09-04 07:13 | Outpatient (CLI) | payer MEDICARE, MEDICAID ==
--- NOTE | 2019-09-04 08:09 | Ultrasound Report ---
Reason: ACUTE KIDNEY FAILURE Procedure Date: 09/04/2019 Accession Number: [id number] / [id number] Procedure: US - Retroperitoneal CPT Code: Final Report FULL RESULT: EXAM: RENAL ULTRASOUND EXAM DATE: 09/04/2019 07:53 AM. CLINICAL HISTORY: ACUTE KIDNEY FAILURE. COMPARISON: RETROPERITONEAL 07/21/2018 8:06 AM. TECHNIQUE: Real-time scanning was performed with static images obtained. FINDINGS: Right Kidney: 9.3 x 5.3 x 4.7 cm. Mildly echogenic. No hydronephrosis. Lower pole 1.3 x 1.2 x 1.2 cm angiomyolipoma. Left Kidney: 9.3 x 5.3 x 4.6 cm. Mildly echogenic. No hydronephrosis. Bladder: Bilateral jets seen. The prevoid bladder volume was 81 cc. The postvoid bladder volume was 8 cc. Other: None. IMPRESSION: 1. Mildly echogenic kidneys suggestive of medical renal disease. No hydronephrosis. 2. 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
== END 2019-09-04 07:14 | disposition home or self-care (01) ==
LOC: DI 07:13
PROVIDERS: ATTEND Internal Medicine Nephrology
DX: N17.9 Acute kidney failure, unspecified (principal); D17.71 Benign lipomatous neoplasm of kidney
CPT/HCPCS: 76770

== ENCOUNTER 2019-10-03 08:00 | Outpatient (CLI) | payer MEDICARE, MEDICAID ==
[2019-10-03 19:30] LABS: BILIRUBIN,URINE NEGATIVE (NEGATIVE); GLUCOSE, URINE (UA) NEGATIVE (NEGATIVE); KETONES,URINE (UA) NEGATIVE (NEGATIVE); LEUKOCYTE ESTERASE, URINE NEGATIVE (NEGATIVE); NITRITE,URINE NEGATIVE (NEGATIVE); OCCULT BLOOD,URINE SMALL (NEGATIVE); PH,URINE 5.5 PH (5.0-7.5); PROTEIN,URINE NEGATIVE (NEGATIVE); UROBILINOGEN,URINE 0.2 (NORMAL) E.U./dL (NORMAL)
[2019-10-03 19:32] LABS: CLARITY,URINE CLEAR (CLEAR)
[2019-10-03 19:40] LABS: BACTERIA,URINE None Seen /HPF (None Seen); RBC,URINE 0-5 /HPF (0-5); SQUAMOUS EPITHELIAL CELL,UR NONE SEEN (<= Few)
== END 2019-10-03 23:59 | disposition home or self-care (01) ==
LOC: LAB.R 08:00
PROVIDERS: ATTEND Physician Assistant Medical
DX: R31.9 Hematuria, unspecified (principal)
CPT/HCPCS: 81001; 81002; 81003; 87086

== ENCOUNTER 2019-10-24 13:57 | Emergency (ER) | payer MEDICARE, MEDICAID ==
[2019-10-24] MEDS ORDERED: ASPIRIN CHEW 81 MG TABLET PO STA (14:25)
--- NOTE | 2019-10-24 14:28 | ED Physician Documentation ---
PD HPI CHEST PAIN - Stated complaint Stated Complaint: CP - Chief complaint Chief Complaint: Cardiac - History obtained from History obtained from: Patient, Family (daughter) - History of Present Illness Timing - onset: Today (74-year-old woman with history of hypertension and renal insufficiency with high potassiums in the past on fludrocortisone for same presents with 2 hours of left-sided chest heaviness with mild shortness of breath that started around 1130 this morning and is now gone. It stopped after taking nitroglycerin a few minutes after 1:30 PM. 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 : None HEENT: None Psych: None Musculoskeletal: None Derm: None - Past Surgical History Past Surgical History: No General: Other /STERILE PROCESSING TECHNOLOGIST: Tubal ligation - Present Medications Home Medications: Ambulatory Orders Medication Instructions Recorded Confirmed Aspirin Chewable [St Ted 81 mg PO ONCE 10/29/18 03/08/19 Aspirin] Levothyroxine [Synthroid] 100 mcg PO DAILY 10/29/18 03/08/19 Metoprolol Succinate [Toprol Xl] 50 mg PO BID 10/29/18 03/08/19 metFORMIN [Glucophage] 500 mg PO BIDWM 10/29/18 03/08/19 Cephalexin [Keflex] 500 mg PO TID #20 capsule 03/08/19 Omeprazole 20 mg PO DAILY 03/08/19 03/08/19 Promethazine [Phenergan] 25 mg PO Q6H PRN #15 tab 03/08/19 Nitroglycerin [Nitrostat] 0.4 mg SL Q5MIN PRN #1 bot 10/24/19 - Allergies Allergies/Adverse Reactions: Allergies Allergy/AdvReac Type Severity Reaction Status Date / Time eplerenone Allergy Respiratory Verified 10/24/19 14:18 spironolactone Allergy Respiratory Verified 10/24/19 14:18 amoxicillin [From Augmentin] AdvReac Nausea Verified 10/24/19 14:18 clavulanic acid AdvReac Nausea Verified 10/24/19 14:18 [From Augmentin] ondansetron [From Zofran] AdvReac Unknown Verified 10/24/19 14:18 Sulfa (Sulfonamide AdvReac Nausea Verified 10/24/19 14:18 Antibiotics) - Social History Does the pt smoke?: No Smoking Status: Never smoker Does the pt drink ETOH?: No Does the pt have substance abuse?: No - Immunizations Immunizations are current?: Yes - POLST Patient has POLST: No PD ED PE NORMAL - Vitals Vital signs reviewed: Yes - General General: Alert and oriented X 3, Other (Hard of hearing) - HEENT HEENT: PERRL, EOMI - Cardiac Cardiac: RRR, No murmur - Respiratory Respiratory: No respiratory distress, Clear bilaterally - Abdomen Abdomen: Non tender - Back Back: No CVA TTP, No spinal TTP - Extremities Extremities: No calf tenderness / cord - Neuro Neuro: Alert and oriented X 3, No motor deficit, No sensory deficit, Normal speech Results - Vitals Vitals: Vital Signs - 24 hr 10/24/19 10/24/19 10/24/19 14:09 15:47 16:54 Temperature 36.5 C Heart Rate 87 73 64 Respiratory 18 16 20 Rate Blood Pressure 122/72 127/54 L O2 Saturation 96 98 96 Oxygen O2 Source Room air - EKG (time done) 1407 Rate: Rate (enter#) (78) Rhythm: NSR [place]: Normal Intervals: Normal AL QRS: LVH Ischemia: Normal ST segments Computer interpretation: Agree with computer - Labs Labs: Laboratory Tests 10/24/19 10/24/19 10/24/19 13:05 14:30 14:30 WBC 7.4 RBC 4.04 L Hgb 11.4 L Hct 35.8 L MCV 88.6 MCH 28.2 MCHC 31.8 L RDW 14.0 Plt Count 255 MPV 10.8 Neut # (Auto) 4.0 Lymph # (Auto) 2.5 Pratt # (Auto) 0.7 Eos # (Auto) 0.1 Baso # (Auto) 0.0 Absolute Nucleated RBC 0.00 Nucleated RBC % 0.0 Sodium 137 Potassium 3.9 Chloride 104 Carbon Dioxide 22 Anion Gap 11.0 BUN 36 H Creatinine 1.5 H Estimated GFR (MDRD) 34 L Glucose 169 H Calcium 8.6 Total Bilirubin 0.4 AST 17 ALT 15 Alkaline Phosphatase 74 Troponin I High Sens Total Protein 6.3 L Albumin 3.7 Globulin 2.6 Albumin/Globulin Ratio 1.4 Lipase 43 Urine Color YELLOW Urine Clarity CLEAR Urine pH 5.5 Ur Specific [place] 1.015 Urine Protein NEGATIVE Urine Glucose (UA) NEGATIVE Urine Ketones NEGATIVE Urine Occult Blood SMALL H Urine Nitrite NEGATIVE Urine Bilirubin NEGATIVE Urine Urobilinogen 0.2 (NORMAL) Ur Leukocyte Esterase NEGATIVE Urine RBC 0-5 Urine WBC 0-3 Ur Squamous Epith Cells RARE Squamous Urine Bacteria None Seen Ur Microscopic Review INDICATED Urine Culture Comments NOT INDICATED 10/24/19 10/24/19 14:30 16:33 WBC RBC Hgb Hct MCV MCH MCHC RDW Plt Count MPV Neut # (Auto) Lymph # (Auto) Pratt # (Auto) Eos # (Auto) Baso # (Auto) Absolute Nucleated RBC Nucleated RBC % Sodium Potassium Chloride Carbon Dioxide Anion Gap BUN Creatinine Estimated GFR (MDRD) Glucose Calcium Total Bilirubin AST ALT Alkaline Phosphatase Troponin I High Sens 2.9 3.2 Total Protein Albumin Globulin Albumin/Globulin Ratio Lipase Urine Color Urine Clarity Urine pH Ur Specific [place] Urine Protein Urine Glucose (UA) Urine Ketones Urine Occult Blood Urine Nitrite Urine Bilirubin Urine Urobilinogen Ur Leukocyte Esterase Urine RBC Urine WBC Ur Squamous Epith Cells Urine Bacteria Ur Microscopic Review Urine Culture Comments - Rads (name of study) 1v chest Radiology: EMP read contemporaneously (normal) PD MEDICAL DECISION MAKING - ED course ED course: 74-year-old woman with atypical resolved chest pain, EKG is nonischemic, 2 high- sensitivity troponins in the department were on the low end and without significant change. No chest pain while here. Follow-up advised for stress testing. Departure - Departure Disposition: 01 Home, Self Care Clinical Impression: Chest pain Condition: Good Instructions: ED Chest Pain NonCardiac Prescriptions: Nitroglycerin [Nitrostat] 0.4 mg SL Q5MIN PRN #1 bot PRN Reason: Chest Pain Comments: Heart testing looks normal including 2 troponins today. You need to follow-up with your primary care physician and discuss stress testing. Return if chest pain recurs or for other new or worsening symptoms. Discharge Date/Time: 10/24/19 17:26
[2019-10-24 14:33] LABS: BASOPHILS % (AUTO) 0.5 %; EOSINOPHILS # (AUTO) 0.1 10^3/uL (0.0-0.7); EOSINOPHILS % (AUTO) 1.5 %; HGB - HEMOGLOBIN 11.4 g/dL (12.0-16.0); LYMPHOCYTES # (AUTO) 2.5 10^3/uL (1.5-3.5); LYMPHOCYTES % (AUTO) 34.4 %; MEAN CORPUSCULAR HEMOGLOBIN 28.2 pg (27.0-31.0); MEAN CORPUSCULAR HGB CONC 31.8 g/dL (32.0-36.0); MEAN CORPUSCULAR VOLUME 88.6 fL (81.0-99.0); MEAN PLATELET VOLUME 10.8 fL (7.9-10.8); MONOCYTES # (AUTO) 0.7 10^3/uL (0.0-1.0); MONOCYTES % (AUTO) 8.8 %; NEUTROPHILS % (AUTO) 54.4 %; PLT - PLATELET COUNT 255 10^3/uL (130-450); RED BLOOD COUNT 4.04 10^6/uL (4.20-5.40); WHITE BLOOD COUNT 7.4 x10^3/uL (4.8-10.8)
[2019-10-24 14:46] LABS: ALBUMIN 3.7 g/dL (3.2-5.5); ALBUMIN/GLOBULIN RATIO 1.4 (1.0-2.2); BILIRUBIN,TOTAL 0.4 mg/dL (0.2-1.0); CALCIUM 8.6 mg/dL (8.5-10.3); CREATININE 1.5 mg/dL (0.4-1.0); TOTAL PROTEIN 6.3 g/dL (6.7-8.2)
--- NOTE | 2019-10-24 14:51 | XRAY Report ---
Reason: chest pain Procedure Date: 10/24/2019 Accession Number: [id number] / [id number] Procedure: XR - Chest 1 View X-Ray CPT Code: 11834 Final Report FULL RESULT: EXAM: CHEST RADIOGRAPHY EXAM DATE: 10/24/2019 02:34 PM. CLINICAL HISTORY: Chest pain. COMPARISON: CHEST 1 VIEW 03/08/2019 9:47 AM. TECHNIQUE: 1 view. FINDINGS: LUNGS: The lungs are clear. PLEURA: No significant pleural effusion. No clinically significant pneumothorax. MEDIASTINUM: Heart and mediastinal contours are notable for aortic calcification. The cardiac silhouette is normal in size. BONES: No suspicious osseous lesions. IMPRESSION: No acute cardiopulmonary abnormality. RADIA
[2019-10-24 15:09] LABS: BILIRUBIN,URINE NEGATIVE (NEGATIVE); GLUCOSE, URINE (UA) NEGATIVE (NEGATIVE); KETONES,URINE (UA) NEGATIVE (NEGATIVE); LEUKOCYTE ESTERASE, URINE NEGATIVE (NEGATIVE); NITRITE,URINE NEGATIVE (NEGATIVE); OCCULT BLOOD,URINE SMALL (NEGATIVE); PH,URINE 5.5 PH (5.0-7.5); PROTEIN,URINE NEGATIVE (NEGATIVE); UROBILINOGEN,URINE 0.2 (NORMAL) E.U./dL (NORMAL)
[2019-10-24 15:11] LABS: CLARITY,URINE CLEAR (CLEAR)
[2019-10-24 15:24] LABS: BACTERIA,URINE None Seen /HPF (None Seen); RBC,URINE 0-5 /HPF (0-5); SQUAMOUS EPITHELIAL CELL,UR RARE Squamous (<= Few)
[2019-10-24 16:56] VITALS: BP 127/54
== END 2019-10-24 17:26 | disposition home or self-care (01) ==
LOC: ED 13:57
DX: R07.9 Chest pain, unspecified (principal); I10 Essential (primary) hypertension; E11.29 Type 2 diabetes mellitus with other diabetic kidney complication; N28.9 Disorder of kidney and ureter, unspecified; Z79.84 Long term (current) use of oral hypoglycemic drugs
CPT/HCPCS: 36415; 71045; 80053; 81001; 83690; 84484; 85025; 93005; 99284; A9270; 81003; 87086

== ENCOUNTER 2019-11-28 07:00 | Outpatient (CLI) | payer MEDICARE, MEDICAID ==
[2019-11-28 19:04] LABS: CALCIUM 9.1 mg/dL (8.5-10.3); CREATININE 1.3 mg/dL (0.4-1.0)
[2019-11-28 19:07] LABS: HB2 TOTAL 12.6 g/dL; HEMOGLOBIN A1C 0.64 g/dL; HEMOGLOBIN A1C % 6.8 % (4.6-6.2)
[2019-11-28 19:11] LABS: CREATININE,URINE 44.7 mg/dL; MICROALBUM/CREATININE RATIO,UR 6.7 ug/mg (<30.0); MICROALBUMIN,URINE 0.3 mg/dL (0-300.0)
== END 2019-11-28 23:59 | disposition home or self-care (01) ==
LOC: LAB.WCP 07:00
PROVIDERS: ATTEND Physician Assistant Medical
DX: D17.71 Benign lipomatous neoplasm of kidney (principal); E27.9 Disorder of adrenal gland, unspecified; E11.9 Type 2 diabetes mellitus without complications; E87.6 Hypokalemia
CPT/HCPCS: 36415; 80048; 82043; 82570; 83036

== ENCOUNTER 2020-03-01 08:00 | Outpatient (CLI) | payer MEDICARE, MEDICAID ==
[2020-03-01 13:27] LABS: HB2 TOTAL 12.6 g/dL; HEMOGLOBIN A1C 0.65 g/dL; HEMOGLOBIN A1C % 6.9 % (4.6-6.2)
[2020-03-01 13:57] LABS: ALBUMIN 3.9 g/dL (3.2-5.5); ALBUMIN/GLOBULIN RATIO 1.4 (1.0-2.2); ALKALINE PHOSPHATASE 73 IU/L (42-121); ALT ALANINE AMINOTRANSFERASE 19 IU/L (10-60); AST ASPARTATE AMINOTRANSFERASE 17 IU/L (10-42); BILIRUBIN,TOTAL 0.6 mg/dL (0.2-1.0); BUN - BLOOD UREA NITROGEN 29 mg/dL (6-20); CALCIUM 9.1 mg/dL (8.5-10.3); CARBON DIOXIDE - CO2 23 mmol/L (21-32); CHLORIDE 107 mmol/L (101-111); CHOL/HDL RATIO 4.9 (<4.4); CHOLESTEROL 248 mg/dL; CREATININE 1.2 mg/dL (0.4-1.0); GLUCOSE 125 mg/dL (70-100); HDL CHOLESTEROL 51 mg/dL; LDL CHOLESTEROL,CALCULATED 174 mg/dL; LDL/HDL RATIO 3.4 (<4.4); SODIUM 135 mmol/L (135-145); TOTAL PROTEIN 6.7 g/dL (6.7-8.2); VLDL CHOLESTEROL 23 mg/dL
== END 2020-03-01 23:59 | disposition home or self-care (01) ==
LOC: LAB.WCP 08:00
PROVIDERS: ATTEND Physician Assistant Medical
DX: E11.9 Type 2 diabetes mellitus without complications (principal)
CPT/HCPCS: 36415; 80053; 80061; 83036; 83721

== ENCOUNTER 2020-07-08 07:00 | Outpatient (CLI) | payer MEDICARE, MEDICAID ==
[2020-07-08 19:12] LABS: BASOPHILS % (AUTO) 0.7 %; EOSINOPHILS # (AUTO) 0.1 10^3/uL (0.0-0.7); EOSINOPHILS % (AUTO) 2.2 %; HGB - HEMOGLOBIN 12.9 g/dL (12.0-16.0); LYMPHOCYTES % (AUTO) 34.9 %; MEAN CORPUSCULAR HEMOGLOBIN 29.2 pg (27.0-31.0); MEAN CORPUSCULAR HGB CONC 32.2 g/dL (32.0-36.0); MEAN CORPUSCULAR VOLUME 90.7 fL (81.0-99.0); MEAN PLATELET VOLUME 10.9 fL (7.9-10.8); MONOCYTES # (AUTO) 0.4 10^3/uL (0.0-1.0); MONOCYTES % (AUTO) 7.4 %; NEUTROPHILS # (AUTO) 3.2 10^3/uL (1.5-6.6); NEUTROPHILS % (AUTO) 54.6 %; PLT - PLATELET COUNT 295 10^3/uL (130-450); RED BLOOD COUNT 4.42 10^6/uL (4.20-5.40); WHITE BLOOD COUNT 5.9 x10^3/uL (4.8-10.8)
[2020-07-08 19:38] LABS: CREATINE KINASE MB 2.5 ng/mL (0.6-6.3)
[2020-07-08 19:41] LABS: ALBUMIN 3.8 g/dL (3.2-5.5); ALBUMIN/GLOBULIN RATIO 1.4 (1.0-2.2); ALKALINE PHOSPHATASE 70 IU/L (42-121); ALT ALANINE AMINOTRANSFERASE 18 IU/L (10-60); AST ASPARTATE AMINOTRANSFERASE 17 IU/L (10-42); BILIRUBIN,TOTAL 0.3 mg/dL (0.2-1.0); BUN - BLOOD UREA NITROGEN 24 mg/dL (6-20); CALCIUM 9.3 mg/dL (8.5-10.3); CARBON DIOXIDE - CO2 24 mmol/L (21-32); CHLORIDE 107 mmol/L (101-111); CHOL/HDL RATIO 5.3 (<4.4); CHOLESTEROL 252 mg/dL; CREATININE 1.3 mg/dL (0.4-1.0); GLUCOSE 141 mg/dL (70-100); HDL CHOLESTEROL 48 mg/dL; LDL CHOLESTEROL,CALCULATED 175 mg/dL; LDL/HDL RATIO 3.6 (<4.4); SODIUM 140 mmol/L (135-145); TOTAL PROTEIN 6.6 g/dL (6.7-8.2); VLDL CHOLESTEROL 29 mg/dL
[2020-07-08 19:54] LABS: HEMOGLOBIN A1c% 7.6 % (4.27-6.07)
[2020-07-10 12:03] LABS: HEPATITIS C ANTIBODY NON-REACTIVE (NON-REACTIVE)
== END 2020-07-08 23:59 | disposition home or self-care (01) ==
LOC: LAB.WCP 07:00
PROVIDERS: ATTEND Family Medicine
DX: R07.89 Other chest pain (principal); E03.9 Hypothyroidism, unspecified; E11.9 Type 2 diabetes mellitus without complications; Z11.59 Encounter for screening for other viral diseases
CPT/HCPCS: 36415; 80053; 80061; 82553; 83036; 83721; 84443; 84484; 85025; 85379; 86803

== ENCOUNTER 2020-11-13 08:00 | Outpatient (CLI) | payer MEDICARE, MEDICAID ==
[2020-11-13 19:40] LABS: HEMOGLOBIN A1c% 7.6 % (4.27-6.07)
[2020-11-13 19:45] LABS: ALBUMIN 4.2 g/dL (3.2-5.5); ALBUMIN/GLOBULIN RATIO 1.5 (1.0-2.2); ALKALINE PHOSPHATASE 69 IU/L (42-121); ALT ALANINE AMINOTRANSFERASE 20 IU/L (10-60); AST ASPARTATE AMINOTRANSFERASE 17 IU/L (10-42); BILIRUBIN,TOTAL 0.7 mg/dL (0.2-1.0); BUN - BLOOD UREA NITROGEN 25 mg/dL (6-20); CALCIUM 9.4 mg/dL (8.5-10.3); CARBON DIOXIDE - CO2 24 mmol/L (21-32); CHLORIDE 102 mmol/L (101-111); CHOL/HDL RATIO 6.3 (<4.4); CHOLESTEROL 313 mg/dL; CREATININE 1.4 mg/dL (0.4-1.0); GLUCOSE 132 mg/dL (70-100); HDL CHOLESTEROL 50 mg/dL; LDL CHOLESTEROL,CALCULATED 235 mg/dL; LDL/HDL RATIO 4.7 (<4.4); VLDL CHOLESTEROL 28 mg/dL
== END 2020-11-13 23:59 | disposition home or self-care (01) ==
LOC: LAB.WCP 08:00
PROVIDERS: ATTEND Physician Assistant Medical
DX: E11.9 Type 2 diabetes mellitus without complications (principal)
CPT/HCPCS: 36415; 80053; 80061; 83036; 83721

== ENCOUNTER 2021-02-07 08:00 | Outpatient (CLI) | payer MEDICARE, MEDICAID ==
[2021-02-07 18:20] LABS: BASOPHILS # (AUTO) 0.1 10^3/uL (0.0-0.1); BASOPHILS % (AUTO) 0.7 %; EOSINOPHILS # (AUTO) 0.1 10^3/uL (0.0-0.7); EOSINOPHILS % (AUTO) 1.5 %; HCT - HEMATOCRIT 41.7 % (37.0-47.0); HGB - HEMOGLOBIN 13.4 g/dL (12.0-16.0); LYMPHOCYTES # (AUTO) 2.5 10^3/uL (1.5-3.5); LYMPHOCYTES % (AUTO) 37.3 %; MEAN CORPUSCULAR HEMOGLOBIN 28.8 pg (27.0-31.0); MEAN CORPUSCULAR HGB CONC 32.1 g/dL (32.0-36.0); MEAN CORPUSCULAR VOLUME 89.5 fL (81.0-99.0); MEAN PLATELET VOLUME 11.1 fL (7.9-10.8); MONOCYTES # (AUTO) 0.6 10^3/uL (0.0-1.0); MONOCYTES % (AUTO) 8.5 %; NEUTROPHILS # (AUTO) 3.4 10^3/uL (1.5-6.6); NEUTROPHILS % (AUTO) 51.6 %; PLT - PLATELET COUNT 307 10^3/uL (130-450); RED BLOOD COUNT 4.66 10^6/uL (4.20-5.40); RED CELL DISTRIBUTION WIDTH 13.8 % (12.0-15.0); WHITE BLOOD COUNT 6.7 x10^3/uL (4.8-10.8)
[2021-02-07 18:29] LABS: BILIRUBIN,URINE NEGATIVE (NEGATIVE); GLUCOSE, URINE (UA) NEGATIVE (NEGATIVE); KETONES,URINE (UA) NEGATIVE (NEGATIVE); LEUKOCYTE ESTERASE, URINE SMALL (NEGATIVE); NITRITE,URINE NEGATIVE (NEGATIVE); OCCULT BLOOD,URINE TRACE-INTA (NEGATIVE); PROTEIN,URINE NEGATIVE (NEGATIVE); UROBILINOGEN,URINE 0.2 (NORMAL) E.U./dL (NORMAL)
[2021-02-07 18:34] LABS: ALBUMIN 3.9 g/dL (3.2-5.5); ALBUMIN/GLOBULIN RATIO 1.3 (1.0-2.2); ALKALINE PHOSPHATASE 77 IU/L (42-121); ALT ALANINE AMINOTRANSFERASE 19 IU/L (10-60); AST ASPARTATE AMINOTRANSFERASE 17 IU/L (10-42); BILIRUBIN,TOTAL 0.6 mg/dL (0.2-1.0); BUN - BLOOD UREA NITROGEN 23 mg/dL (6-20); CALCIUM 9.7 mg/dL (8.5-10.3); CARBON DIOXIDE - CO2 24 mmol/L (21-32); CHLORIDE 104 mmol/L (101-111); CHOL/HDL RATIO 5.6 (<4.4); CHOLESTEROL 274 mg/dL; CREATININE 1.3 mg/dL (0.4-1.0); GFR - MDRD 40 (>89); GLUCOSE 120 mg/dL (70-100); HDL CHOLESTEROL 49 mg/dL; LDL CHOLESTEROL,CALCULATED 185 mg/dL; LDL/HDL RATIO 3.8 (<4.4); POTASSIUM 4.8 mmol/L (3.5-5.0); SODIUM 139 mmol/L (135-145); TRIGLYCERIDES 201 mg/dL; VLDL CHOLESTEROL 40 mg/dL
[2021-02-07 18:39] LABS: BACTERIA,URINE Rare /HPF (None Seen); CLARITY,URINE HAZY (CLEAR); RBC,URINE 0-5 /HPF (0-5); SQUAMOUS EPITHELIAL CELL,UR FEW Squamous (<= Few)
[2021-02-07 18:40] LABS: CREATININE,URINE 132.8 mg/dL; MICROALBUM/CREATININE RATIO,UR 1.5 ug/mg (<30.0); MICROALBUMIN,URINE 0.2 mg/dL (0-300.0)
[2021-02-07 18:50] LABS: THYROID STIMULATING HORMONE 2.76 uIU/mL (0.34-5.60)
[2021-02-07 20:29] LABS: ESTIMATED AVERAGE GLUCOSE 169 mg/dL (70-100); HEMOGLOBIN A1c% 7.5 % (4.27-6.07)
== END 2021-02-07 23:59 | disposition home or self-care (01) ==
LOC: LAB.WCP 08:00
PROVIDERS: ATTEND Family Medicine
DX: E87.5 Hyperkalemia (principal); E11.9 Type 2 diabetes mellitus without complications; R31.9 Hematuria, unspecified; E03.9 Hypothyroidism, unspecified
CPT/HCPCS: 36415; 80053; 80061; 81001; 82043; 82570; 83036; 83721; 84443; 85025; 87086

== ENCOUNTER 2021-05-19 15:28 | Outpatient (CLI) | payer MEDICARE, MEDICAID ==
--- NOTE | 2021-05-19 15:56 | XRAY Report ---
PROCEDURE: Hip w/Pelvis 2-3V RT INDICATIONS: HIP PAIN,RIGHT TECHNIQUE: AP pelvis with lateral view(s) of the bilateral hip(s). COMPARISON: None. FINDINGS: Bones: No fractures or dislocations. Pelvic ring appears intact. No suspicious bony lesions. The right hip has severe degenerative changes with subchondral sclerosis, osteophytes, and subchondral cy stic changes. The left hip has degenerative changes which are mild. The sacroiliac joint has degenera tive changes. Soft tissues: The visualized bowel gas pattern is normal. No suspicious soft tissue calcifications. IMPRESSION: Degenerative changes of the right hip consistent with osteoarthritis. Reviewed by: Richmond Rooney on 05/19/2021 3:55 PM PDT Approved by: Richmond Rooney on 05/19/2021 3:55 PM PDT Station ID: [id number]
== END 2021-05-19 15:29 | disposition home or self-care (01) ==
LOC: DI 15:28
PROVIDERS: ATTEND Physician Assistant Medical
DX: M25.551 Pain in right hip (principal); M16.0 Bilateral primary osteoarthritis of hip

== ENCOUNTER 2021-07-11 13:41 | Outpatient (CLI) | payer MEDICARE, MEDICAID ==
[2021-07-11 18:43] LABS: BASOPHILS % (AUTO) 0.4 %; EOSINOPHILS # (AUTO) 0.1 10^3/uL (0.0-0.7); EOSINOPHILS % (AUTO) 1.4 %; HCT - HEMATOCRIT 39.6 % (37.0-47.0); HGB - HEMOGLOBIN 12.4 g/dL (12.0-16.0); LYMPHOCYTES # (AUTO) 2.9 10^3/uL (1.5-3.5); LYMPHOCYTES % (AUTO) 36.4 %; MEAN CORPUSCULAR HEMOGLOBIN 28.8 pg (27.0-31.0); MEAN CORPUSCULAR HGB CONC 31.3 g/dL (32.0-36.0); MEAN CORPUSCULAR VOLUME 92.1 fL (81.0-99.0); MONOCYTES # (AUTO) 0.6 10^3/uL (0.0-1.0); MONOCYTES % (AUTO) 7.5 %; NEUTROPHILS # (AUTO) 4.3 10^3/uL (1.5-6.6); PLT - PLATELET COUNT 298 10^3/uL (130-450); RED CELL DISTRIBUTION WIDTH 13.4 % (12.0-15.0)
[2021-07-11 18:46] LABS: PT - PROTHROMBIN TIME 11.1 secs (9.9-12.6)
== END 2021-07-11 23:59 | disposition home or self-care (01) ==
LOC: LAB.WCP 13:41
PROVIDERS: ATTEND Physician Assistant Medical
DX: R04.0 Epistaxis (principal)
CPT/HCPCS: 36415; 85025; 85610

== ENCOUNTER 2021-07-21 10:00 | Outpatient (CLI) | payer MEDICARE, MEDICAID ==
--- NOTE | 2021-07-21 11:47 | XRAY Report ---
PROCEDURE: Hip w/Pelvis 2-3V RT INDICATIONS: RIGHT HIP PAIN TECHNIQUE: AP pelvis with lateral view(s) of the right hip(s). COMPARISON: X-ray hip 05/19/2021 FINDINGS: Bones: No fractures or dislocations. Pelvic ring appears intact. No suspicious bony lesions. Mode rate bilateral degenerative hip joint space narrowing. Periarticular osteophytes are notable on the r ight. Soft tissues: The visualized bowel gas pattern is normal. No suspicious soft tissue calcifications. IMPRESSION: Bilateral right greater than left arthritic change. Reviewed by: Deb Johnson MD on 07/21/2021 11:46 AM PDT Approved by: Deb Johnson MD on 07/21/2021 11:46 AM PDT Station ID: [id number]
== END 2021-07-21 23:59 | disposition home or self-care (01) ==
LOC: DI.N 10:00
PROVIDERS: ATTEND Physician Assistant
DX: M16.0 Bilateral primary osteoarthritis of hip (principal)